=== PATIENT | male | born 1980 | race Caucasian/White ===

== ENCOUNTER 2021-09-14 10:43 | Outpatient (REF) | payer BC, SELFPAY ==
--- NOTE | ~2021-09-14 | XR_ITS ---
EXAMINATION: XR ELBOW, RIGHT CLINICAL INFORMATION: Right elbow pain. COMPARISON: None TECHNIQUE: AP, lateral, and oblique views of the right elbow. FINDINGS: The bones and soft tissues are normal. No fracture or joint effusion. Alignment is anatomic. Joint spaces are maintained. XR/XR elbow RT min 3V IMPRESSION: Unremarkable right elbow.
== END 2021-09-14 10:44 | disposition home or self-care (01) ==
LOC: HO.HMGCX 10:43
PROVIDERS: PCP Nurse Practitioner Family; Visit Provider Internal Medicine
DX: M77.8 Other enthesopathies, not elsewhere classified (principal)
CPT/HCPCS: 73080

== ENCOUNTER 2021-11-27 11:38 | Outpatient (REF) | payer BC, SELFPAY ==
[2021-11-27 14:15] LABS: MANUAL DIFF FLAG NO
[2021-11-27 14:16] LABS: Appearance Urine Clear; Color Urine Yellow; Glucose Urine UA Negative (Negative); Leukocyte Esterase Urine Negative (Negative); Nitrite Urine Negative (Negative); PH 7.5 (5.0-9.0); Specific Gravity - Urine <= 1.005 (1.005-1.025); Urine Blood Negative (Negative); Urine Ketones Negative (Negative); Urine Protein Negative (Neg-Trace)
[2021-11-27 14:26] LABS: Basophils Percent Auto 0.8 % (0-2); Eosinophils Absolute Auto 0.3 X10*3/uL (0.0-0.4); Eosinophils Percent Auto 6.9 % (0-4); Hematocrit 47.2 % (42.0-52.0); Hemoglobin 16.3 g/dl (14.0-18.0); Imm Gran Abs Auto 0.01 X10*3/uL (0.00-0.03); Imm Gran Pct Auto 0.2 % (0.0-0.4); Lymphocytes Absolute Auto 2.3 X10*3/uL (1.2-4.9); Lymphocytes Percent Auto 48.3 % (20-40); Mean Corpuscular HGB Conc 34.5 g/dl (31.0-36.0); Mean Corpuscular Hemoglobin 31.5 pg (27.0-33.0); Mean Corpuscular Volume 91.1 fL (80.0-98.0); Mean Platelet Volume 9.4 fL (9.4-12.4); Monocytes Absolute Auto 0.5 X10*3/uL (0.1-1.2); Monocytes Percent Auto 10.9 % (2-11); Neutrophils Absolute Auto 1.6 x10*3/uL (2.0-8.3); Neutrophils Percent Auto 32.9 % (45-73); Platelet Count 240 X10*3/uL (160-400); Red Blood Count 5.18 X10*6/uL (4.60-5.80); White Blood Count 4.8 X10*3/uL (4.8-10.8)
[2021-11-27 14:58] LABS: Alanine Aminotransferase 28 U/L (0-40); Alkaline Phosphatase 73 U/L (39-117); Anion Gap 17 (12-20); Aspartate Amino Transferase 21 U/L (5-37); Bilirubin Total 0.7 mg/dL (0.0-1.0); Blood Urea Nitrogen 15 mg/dL (9-16); Calcium 9.9 mg/dL (8.4-10.2); Carbon Dioxide 28 mmol/L (22-29); Chloride 99 mmol/L (96-108); Cholesterol 239 mg/dL; Estimated Glomerular Filt Rate > 60; Glucose Fasting 105 mg/dL (60-99); HDL Cholesterol 47 mg/dL; LDL Cholesterol Calculated 144 mg/dl; Potassium 4.4 mmol/L (3.3-5.1); Sodium 140 mmol/L (135-145); Total Protein 7.9 g/dL (6.5-8.0); Triglycerides 240 mg/dL
[2021-11-27 15:08] LABS: TSH reflex Free T4 0.86 uIU/mL (0.32-4.0)
== END 2021-11-27 11:39 | disposition home or self-care (01) ==
LOC: HO.HMGCLDS 11:38
PROVIDERS: PCP Nurse Practitioner Family; Visit Provider Nurse Practitioner Family
DX: Z00.00 Encounter for general adult medical examination without abnormal findings (principal)
CPT/HCPCS: 36415; 80053; 80061; 81003; 84443; 85025

== ENCOUNTER 2022-04-29 08:46 | Outpatient (REF) | payer BC, SELFPAY ==
[2022-04-29 12:43] LABS: Alanine Aminotransferase 37 U/L (0-40); Albumin Level 4.8 g/dL (3.5-5.0); Alkaline Phosphatase 68 U/L (39-117); Anion Gap 16 (12-20); Aspartate Amino Transferase 24 U/L (5-37); Bilirubin Total 0.9 mg/dL (0.0-1.0); Blood Urea Nitrogen 15 mg/dL (9-16); Calcium 9.9 mg/dL (8.4-10.2); Carbon Dioxide 26 mmol/L (22-29); Chloride 102 mmol/L (96-108); Cholesterol 159 mg/dL; Estimated Glomerular Filt Rate > 60; Glucose Fasting 95 mg/dL (60-99); HDL Cholesterol 42 mg/dL; LDL Cholesterol Calculated 74 mg/dl; Sodium 140 mmol/L (135-145); Total Protein 7.5 g/dL (6.5-8.0); Triglycerides 215 mg/dL
== END 2022-04-29 08:47 | disposition home or self-care (01) ==
LOC: HO.HMGCLDS 08:46
PROVIDERS: PCP Nurse Practitioner Family; Visit Provider Nurse Practitioner Family
DX: E78.5 Hyperlipidemia, unspecified (principal)
CPT/HCPCS: 36415; 80053; 80061

== ENCOUNTER → 2022-06-28 07:52 | Outpatient (BNVA) | payer BC, SELFPAY | PROVIDERS: PCP Nurse Practitioner Family; Visit Provider Nurse Practitioner Family ==

== ENCOUNTER 2022-09-16 13:40 | Outpatient (AMB) | payer BC, SELFPAY ==
--- NOTE | 2022-09-16 13:48 | MHC.PC.OV ---
Vital Signs 09/16/22 13:49 Height 5 ft 11 in Weight 243 lb 2 oz BMI 33.9 BP 150/102 H Blood Pressure Location Lt brachial Position Sitting Pulse 86 Pulse Source Pulse Oximeter Temp 98.6 F Temp Source Oral Pulse Oximetry (%) 98 Oxygen Delivery Method Room Air Intake Visit Reasons: BP/dizziness Intake Note: pt says he has been having sinus pain and pressure and dizziness for the past 2 weeks Allergies mold Allergy (Intermediate, Verified 09/16/22 13:53) triggers asthma Tobacco use date assessed: 09/16/22 Dental Screening Dental Screen Date: 09/16/22 Did you have a dental visit in the last 12 months?: Yes Did you have a dental problem in the last 6 months where you did not have access to dental care?: No Was dental information given to patient?: Patient has dentist HPI BP/dizziness HPI Details HTN: Blood pressure is elevated. Will restart losartan 25mg. Will also have pt monitor his blood pressure at home. Denies chest pain, shortness of breath, headache, dizziness, and blurred vision. Pt c/o sinus pressure. He has seen ENT in the past and had sinus surgery including polyp removal. Will refer back to ENT. Will also send fluticasone. PFSH Family History Sister Mental health disorder Father Brain cancer Mother Diabetes Social History Housing: House Alcohol intake: current Alcohol intake frequency: holidays/special occasions only Patient Tobacco Use Status: Never used Tobacco e-Cigarette/Vaping Use: Never Used Second Hand Smoke Exposure: No service: No Current occupational status: employed Current occupation: [employer] Current occupational exposures/hazards: No Cognitive needs: No Hearing needs: No Vision needs: No Questionnaire Thrive Questionnaire Date Thrive assessed: 07/04/22 TATIANNA-7 AMB Questionnaire TATIANNA-7 Date TATIANNA - 7 assessed: 07/04/22 Source: Developed by Drs. Donald Nunez, Adele Miller, Johnny Ribeiro and colleagues, with an educational jimi from [employer] Review of Systems Const Reports as per HPI Physical exam (Primary Care) Vital Signs: Last Vital Signs Temp 98.6 F 09/16/22 13:49 Pulse 86 09/16/22 13:49 BP 150/102 H 09/16/22 13:49 Pulse Ox 98 09/16/22 13:49 Oxygen Delivery Method Room Air 09/16/22 13:49 BMI result Body Mass Index 33.9 Tobacco/Smoking Status: Tobacco use Status Tobacco use date assessed 09/16/22 09/16/22 13:56 Patient Tobacco Use Status Never used Tobacco 09/16/22 13:56 e-Cigarette/Vaping Use Never Used 09/16/22 13:56 Thrive Assessment: Date of Thrive Assessment Date Thrive assessed 07/04/22 09/16/22 13:56 Const General: cooperative Orientation/consciousness: patient oriented x3 HENMT Other: minimal frontal and maxillary sinus pressure with palpation Ears: TM's normal bilaterally Resp Effort & Inspection: normal respiratory effort Auscultation: clear to auscultation bilaterally Cardio Rate: regular rate Rhythm: regular rhythm Heart sounds: S1 normal heart sound present and S2 normal heart sound present Neuro General: patient oriented x3 Psych Appearance: grossly normal Mental Status: mental status grossly normal Speech and movement: Normal speech and movement present Affect: normal affect Attitude: cooperative Thought process: Normal thought process present Thought content: Normal thought content present Insight: Good insight present (Psych) Judgement: Good judgement present (Psych) Assessment and Plan Assessment & Plan (1) Sinusitis, chronic: Code(s): J32.9 - Chronic sinusitis, unspecified Plan: Referred to ENT, fluticasone sent (2) HTN (hypertension): Code(s): I10 - Essential (primary) hypertension Plan The patient agreed to the use of a medical laboratory specialist for this encounter. Scribed for HUYEN Lewis by Tara Hare medical laboratory specialist, on 09/16/2022 at 14:10 EST. Orders: Referrals Ear/Nose/Throat Referral J32.9 - Chronic sinusitis, unspecified Medications: New fluticasone propionate 50 mcg/actuation (Allergy Relief (fluticasone)) administer into each nostril 2 sprays intranasal DAILY 16 grams 1RF losartan 25 mg PO DAILY 30 days 30 tabs 3RF Coding Level of Care Code Est Pt Level 3 (24976) Diagnoses Sinusitis, chronic J32.9 HTN (hypertension) I10
[2022-09-16 13:49] VITALS: BP 150/102; PULSE 86; TEMP 37; O2SAT 98; BMI 33.9
== END 2022-09-16 16:11 | disposition home or self-care (01) ==
PROVIDERS: PCP Nurse Practitioner Family; Visit Provider Nurse Practitioner Family
DX: J32.9 Chronic sinusitis, unspecified (principal); I10 Essential (primary) hypertension
CPT/HCPCS: 99213

== ENCOUNTER → 2022-09-17 14:55 | Outpatient (REF) | payer BC, SELFPAY | LOC: HO.SL 14:55 | PROVIDERS: PCP Nurse Practitioner Family; Visit Provider Nurse Practitioner Family | DX: G47.00 Insomnia, unspecified (principal); R40.0 Somnolence; R06.83 Snoring | CPT/HCPCS: 95806 ==

== ENCOUNTER → 2022-09-17 15:03 | Outpatient (BNV) | payer BC, SELFPAY | PROVIDERS: PCP Nurse Practitioner Family; Visit Provider Internal Medicine | DX: R06.83 Snoring (principal) | CPT/HCPCS: 95806 ==

== ENCOUNTER 2022-11-18 13:42 | Outpatient (REF) | payer BC, SELFPAY | END 2022-11-18 13:43 | disposition home or self-care (01) | LOC: HO.HMGCLDS 13:42 | PROVIDERS: PCP Nurse Practitioner Family; Visit Provider Nurse Practitioner Family | DX: Z00.00 Encounter for general adult medical examination without abnormal findings (principal); Z13.220 Encounter for screening for lipoid disorders; Z13.29 Encounter for screening for other suspected endocrine disorder; Z13.0 Encounter for screening for diseases of the blood and blood-forming organs and certain disorders involving the immune mechanism | CPT/HCPCS: 36415; 80053; 80061; 81003; 84443; 85025 ==

== ENCOUNTER 2022-11-21 13:15 | Outpatient (AMB) | payer BC, SELFPAY ==
[2022-11-21 13:28] VITALS: BP 152/90; PULSE 91; O2SAT 98; BMI 34.2
--- NOTE | 2022-11-21 13:28 | MHC.PC.OV ---
Vital Signs 11/21/22 13:28 Height 5 ft 11 in Weight 245 lb 6 oz BMI 34.2 BP 152/90 H Blood Pressure Location Lt brachial Position Sitting Pulse 91 Pulse Source Pulse Oximeter Pulse Oximetry (%) 98 Oxygen Delivery Method Room Air Intake Visit Reasons: Annual PE (pt states Pe is calender year) Allergies mold Allergy (Intermediate, Verified 11/21/22 13:32) triggers asthma Medication List - Last Reconciled 11/21/22 by ERMA Sam-IRMA albuterol sulfate 90 mcg/actuation 2 puffs inhalation Q6H PRN amitriptyline 25 mg PO BEDTIME clonazepam 0.5 mg PO DAILY PRN fluticasone propion-salmeterol 250-50 mcg/dose (Wixela Inhub) 1 ea inhalation BID fluticasone propionate 50 mcg/actuation (Allergy Relief (fluticasone)) 2 sprays intranasal DAILY hydrochlorothiazide 12.5 mg PO DAILY ibuprofen 400 mg PO Q8H rosuvastatin 5 mg PO DAILY temazepam 30 mg PO BEDTIME PRN 30 days Tobacco use date assessed: 11/21/22 Dental Screening Dental Screen Date: 11/21/22 Did you have a dental visit in the last 12 months?: Yes Did you have a dental problem in the last 6 months where you did not have access to dental care?: No Was dental information given to patient?: Patient has dentist HPI Annual PE (pt states Pe is calender year) HPI Details Pt is here for a PE. Labs were already performed. HTN: Blood pressure is elevated today. Pt reports that his BP is elevated at home as well (mostly in 130s/80s, but sometimes in 140s/90s). Will start hydrochlorothiazide 12.5mg. Denies chest pain, shortness of breath, headache, dizziness, and blurred vision. He will cont to monitor his BP at home PFSH Family History Sister Mental health disorder Father Brain cancer Mother Diabetes Social History Housing: House Alcohol intake: current Alcohol intake frequency: holidays/special occasions only Patient Tobacco Use Status: Never used Tobacco e-Cigarette/Vaping Use: Never Used Second Hand Smoke Exposure: No service: No Current occupational status: employed Current occupation: [employer] Current occupational exposures/hazards: No Cognitive needs: No Hearing needs: No Vision needs: No Questionnaire Thrive Questionnaire Date Thrive assessed: 07/04/22 TATIANNA-7 AMB Questionnaire TATIANNA-7 Date TATIANNA - 7 assessed: 07/04/22 Source: Developed by Drs. Donald Nunez, Adele Miller, Johnny Ribeiro and colleagues, with an educational jimi from [employer]. Review of Systems Const Denies chills and Denies fever(s) Eyes Denies blurry vision ENT Denies vertigo, Denies dizziness and Denies sore throat Card Denies chest pain at rest, Denies chest pain with activity, Denies diaphoresis, Denies dyspnea and Denies dyspnea on exertion Resp Denies cough, Denies dyspnea, Denies dyspnea on exertion and Denies wheezing GI Denies abdominal pain, Denies melena, Denies hematochezia, Denies constipation, Denies diarrhea and Denies loose stools Denies hematuria Musc Denies numbness and Denies tingling Skin/Breast Denies lesions Neuro Denies vertigo, Denies dizziness, Denies numbness and Denies tingling Psych Denies anxiety, Denies depression, Denies homicidal ideation, Denies suicidal ideation and Denies other (substance abuse) Aller/Immun Denies wheezing Physical exam (Primary Care) Vital Signs: Last Vital Signs Pulse 91 11/21/22 13:28 BP 152/90 H 11/21/22 13:28 Pulse Ox 98 11/21/22 13:28 Oxygen Delivery Method Room Air 11/21/22 13:28 BMI result Body Mass Index 34.2 Tobacco/Smoking Status: Tobacco use Status Tobacco use date assessed 11/21/22 11/21/22 13:35 Patient Tobacco Use Status Never used Tobacco 11/21/22 13:35 e-Cigarette/Vaping Use Never Used 11/21/22 13:35 Thrive Assessment: Date of Thrive Assessment Date Thrive assessed 07/04/22 11/21/22 13:35 Const General: cooperative Nutritional Appearance: well nourished Orientation/consciousness: patient oriented x3 HENMT Head: Yes normal to inspection, Yes normocephalic and Yes atraumatic Ears: TM's normal bilaterally Eyes General: appearance normal, both eyes and all related structures Alignment and Position: alignment normal and position normal Neck Neck: Yes normal visual inspection and Yes no lymphadenopathy Thyroid: Thyroid normal Resp Effort & Inspection: normal respiratory effort Auscultation: clear to auscultation bilaterally Cardio Rate: regular rate Rhythm: regular rhythm Heart sounds: S1 normal heart sound present, S2 normal heart sound present and no murmurs GI Palpation (GI): Soft to palpation and nontender Auscultation: normal bowel sounds Male General Exam: Yes normal external exam Penis: normal penis Scrotum: scrotum normal, testes descended bilaterally and no inguinal hernias Testes: no testicular mass Skin Rashes: no rashes Neuro General: patient oriented x3, moves all extremities, no focal motor deficits and deep tendon reflexes 2+ bilaterally Romberg Test: Negative Psych Appearance: grossly normal Mental Status: mental status grossly normal Speech and movement: Normal speech and movement present Affect: normal affect Attitude: cooperative Thought process: Normal thought process present Thought content: Normal thought content present Insight: Good insight present (Psych) Judgement: Good judgement present (Psych) Assessment and Plan Assessment & Plan (1) HTN (hypertension): Code(s): I10 - Essential (primary) hypertension Plan: start hctz (2) Physical exam: Code(s): Z00.00 - Encounter for general adult medical examination without abnormal findings Plan The patient agreed to the use of a electromedical service engineer for this encounter. Scribed for HUYEN Lewis by Tara Hare electromedical service engineer, on 11/21/2022 at 13:40 EST Medications: New hydrochlorothiazide 12.5 mg PO DAILY 90 tabs 0RF Coding Level of Care Code Est Pt Prev Care 40-64y(74715) Diagnoses HTN (hypertension) I10 Physical exam Z00.00
== END 2022-11-21 14:03 | disposition home or self-care (01) ==
PROVIDERS: Visit Provider Nurse Practitioner Family
DX: I10 Essential (primary) hypertension (principal); Z00.00 Encounter for general adult medical examination without abnormal findings
CPT/HCPCS: 99396

== ENCOUNTER 2023-02-28 14:16 | Outpatient (REF) | payer BC, SELFPAY ==
[2023-02-28 16:37] LABS: Alanine Aminotransferase 44 U/L (0-40); Albumin Level 4.7 g/dL (3.5-5.0); Alkaline Phosphatase 72 U/L (39-117); Anion Gap 14 (12-20); Aspartate Amino Transferase 26 U/L (5-37); Bilirubin Total 0.6 mg/dL (0.0-1.0); Blood Urea Nitrogen 13 mg/dL (9-16); Calcium 10.2 mg/dL (8.4-10.2); Carbon Dioxide 31 mmol/L (22-29); Chloride 99 mmol/L (96-108); Estimated Glomerular Filt Rate > 60; Glucose Random 190 mg/dL (60-115); Potassium 3.7 mmol/L (3.3-5.1); Sodium 140 mmol/L (135-145)
== END 2023-02-28 14:17 | disposition home or self-care (01) ==
LOC: HO.HMGCLDS 14:16
PROVIDERS: PCP Nurse Practitioner Family; Visit Provider Nurse Practitioner Family
DX: I10 Essential (primary) hypertension (principal)
CPT/HCPCS: 36415; 80053

== ENCOUNTER 2023-03-06 11:27 | Outpatient (REF) | payer BC, SELFPAY ==
[2023-03-06 14:12] LABS: Estimated Average Glucose 97 mg/dL
[2023-03-06 14:18] LABS: Alanine Aminotransferase 58 U/L (0-40); Albumin Level 4.8 g/dL (3.5-5.0); Alkaline Phosphatase 69 U/L (39-117); Anion Gap 15 (12-20); Aspartate Amino Transferase 37 U/L (5-37); Bilirubin Total 0.8 mg/dL (0.0-1.0); Blood Urea Nitrogen 12 mg/dL (9-16); Calcium 10.2 mg/dL (8.4-10.2); Carbon Dioxide 30 mmol/L (22-29); Chloride 99 mmol/L (96-108); Estimated Glomerular Filt Rate > 60; Glucose Fasting 93 mg/dL (60-99); Potassium 3.9 mmol/L (3.3-5.1); Sodium 140 mmol/L (135-145); Total Protein 8.2 g/dL (6.5-8.0)
[2023-03-07 07:21] LABS: HBS Num1 11.92 mIU/mL (0-7.99); HBc Num1 0.05 S/CO (0.00-0.79); HBsAGNum1 0.36 S/CO (0.00-0.99); Hepatitis A Antibody IgM 0.14 Index (0-0.79); Hepatitis B Core Antibody Nonreactive (Nonreactive); Hepatitis B Surface Antigen Negative (Negative); ~HepC Num1 0.11 S/CO (0.00-0.79); ~Hepatitis A Antibody IgM Nonreactive (Nonreactive); ~Hepatitis C Antibody Nonreactive (Nonreactive)
[2023-03-07 08:26] LABS: HBS Num3 11.82 mIU/mL (0-7.99)
[2023-03-07 08:27] LABS: ~Hepatitis B Surface Antibody GRAYZONE (Nonreactive)
== END 2023-03-06 11:28 | disposition home or self-care (01) ==
LOC: HO.HMGCLDS 11:27
PROVIDERS: PCP Nurse Practitioner Family; Visit Provider Nurse Practitioner Family
DX: R73.9 Hyperglycemia, unspecified (principal); R74.8 Abnormal levels of other serum enzymes
CPT/HCPCS: 36415; 80053; 83036; 86704; 86706; 86709; 86803; 87340

== ENCOUNTER 2023-03-12 08:50 | Outpatient (REF) | payer BC, SELFPAY ==
--- NOTE | ~2023-03-12 | US_ITS ---
EXAMINATION: US ABDOMEN COMPLETE CLINICAL INFORMATION: Elevated LFTs. COMPARISON: None available. TECHNIQUE: Real-time imaging of the abdominal viscera. FINDINGS: PANCREAS: Normal. ABDOMINAL AORTA: The proximal, mid, and distal segments are normal in caliber. INFERIOR VENA CAVA: Visualized portions are normal. LIVER: Liver is enlarged measuring 18.1 cm in span. The liver contour is normal. Mildly increased hepatic echogenicity which can be seen in the setting of hepatic steatosis or underlying liver disease. No focal hepatic lesion. There is no intrahepatic biliary duct dilatation seen. GALLBLADDER: Normal. The gallbladder is physiologically distended without evidence of stones, sludge, polyps, wall thickening or pericholecystic fluid. COMMON BILE DUCT: Normal in caliber measuring 0.5 cm in diameter. RIGHT KIDNEY: The kidney appears congenitally malrotated. No hydronephrosis. No renal calculi or focal parenchymal lesions. The kidney measures 13.1 cm in maximum dimension. LEFT KIDNEY: Normal. No hydronephrosis. No renal calculi or focal parenchymal lesions. The kidney measures 13 cm in maximum dimension. SPLEEN: Normal. The spleen measures 11.6 cm in maximum dimension. FREE FLUID: None. US/US abdomen complete IMPRESSION: 1. Hepatomegaly. Mildly increased hepatic echogenicity which can be seen in the setting of hepatic steatosis or underlying liver disease. 2. Right kidney appears congenitally malrotated.
== END 2023-03-12 08:51 | disposition home or self-care (01) ==
LOC: HO.HMGCX 08:50
PROVIDERS: PCP Nurse Practitioner Family; Visit Provider Nurse Practitioner Family
DX: R74.8 Abnormal levels of other serum enzymes (principal)
CPT/HCPCS: 76700

== ENCOUNTER 2023-10-10 09:50 | Outpatient (REF) | payer BC, SELFPAY ==
[2023-10-10 13:28] LABS: MANUAL DIFF FLAG NO
[2023-10-10 13:35] LABS: Basophils Absolute Auto 0.1 X10*3/uL (0.0-0.2); Basophils Percent Auto 0.7 % (0-2); Eosinophils Absolute Auto 0.4 X10*3/uL (0.0-0.4); Hematocrit 45.5 % (42.0-52.0); Hemoglobin 16.3 g/dl (14.0-18.0); Imm Gran Abs Auto 0.02 X10*3/uL (0.00-0.03); Imm Gran Pct Auto 0.3 % (0.0-0.4); Lymphocytes Absolute Auto 2.7 X10*3/uL (1.2-4.9); Lymphocytes Percent Auto 40.1 % (20-40); Mean Corpuscular HGB Conc 35.8 g/dl (31.0-36.0); Mean Corpuscular Hemoglobin 31.9 pg (27.0-33.0); Mean Platelet Volume 9.7 fL (9.4-12.4); Monocytes Absolute Auto 0.6 X10*3/uL (0.1-1.2); Monocytes Percent Auto 9.4 % (2-11); Neutrophils Absolute Auto 2.9 x10*3/uL (2.0-8.3); Neutrophils Percent Auto 43.5 % (45-73); Platelet Count 255 X10*3/uL (160-400); Red Blood Count 5.11 X10*6/uL (4.60-5.80); Red Cell Distribution Width 12.1 % (11.0-16.0); White Blood Count 6.7 X10*3/uL (4.8-10.8)
[2023-10-10 13:37] LABS: Appearance Urine Clear; Color Urine Yellow; Glucose Urine UA Negative (Negative); Leukocyte Esterase Urine Negative (Negative); Nitrite Urine Negative (Negative); PH 7.5 (5.0-9.0); Specific Gravity - Urine <= 1.005 (1.005-1.025); Urine Blood Negative (Negative); Urine Ketones Negative (Negative); Urine Protein Negative (Neg-Trace)
[2023-10-10 14:32] LABS: Alanine Aminotransferase 28 U/L (0-40); Albumin Level 4.8 g/dL (3.5-5.0); Alkaline Phosphatase 87 U/L (39-117); Anion Gap 11 (12-20); Aspartate Amino Transferase 21 U/L (5-37); Bilirubin Total 0.7 mg/dL (0.0-1.0); Blood Urea Nitrogen 11 mg/dL (9-16); Calcium 10.4 mg/dL (8.4-10.2); Carbon Dioxide 30 mmol/L (22-29); Chloride 102 mmol/L (96-108); Cholesterol 132 mg/dL (<200); Estimated Glomerular Filt Rate > 60; Glucose Fasting 93 mg/dL (60-99); HDL Cholesterol 41 mg/dL (>40); LDL Cholesterol Calculated 51 mg/dL (<100); Potassium 3.7 mmol/L (3.3-5.1); Sodium 139 mmol/L (135-145); Total Protein 7.9 g/dL (6.5-8.0); Triglycerides 200 mg/dL (<150)
[2023-10-10 14:39] LABS: TSH reflex Free T4 1.24 uIU/mL (0.32-4.0)
== END 2023-10-10 09:51 | disposition home or self-care (01) ==
LOC: HO.HMGCLDS 09:50
PROVIDERS: PCP Nurse Practitioner Family; Visit Provider Nurse Practitioner Family
DX: Z00.00 Encounter for general adult medical examination without abnormal findings (principal); Z13.6 Encounter for screening for cardiovascular disorders
CPT/HCPCS: 36415; 80053; 80061; 81003; 84443; 85025

== ENCOUNTER 2023-10-14 13:44 | Outpatient (AMB) | payer BC, SELFPAY ==
--- NOTE | 2023-10-14 13:46 | MHC.PC.OV ---
Vital Signs 10/14/23 13:47 Height 5 ft 11 in Weight 241 lb BMI 33.6 BP 122/80 Blood Pressure Location Rt brachial Position Sitting Pulse 96 Pulse Source Pulse Oximeter Pulse Oximetry (%) 98 Intake Visit Reasons: Annual PE Intake Note: pt is here for annual exam Molecular Spectroscopist Required: No Accompanied by: Self / Same As Patient Allergies mold Allergy (Intermediate, Verified 10/14/23 13:47) triggers asthma Tobacco use date assessed: 10/14/23 Dental Screening Dental Screen Date: 10/14/23 Did you have a dental visit in the last 12 months?: Yes Did you have a dental problem in the last 6 months where you did not have access to dental care?: No Was dental information given to patient?: Patient has dentist HPI Annual PE HPI Details Pt is here for a PE. Labs were already performed. [facility] Medical History (Updated 03/13/23 @ 07:06 by HUYEN Sam) Fatty liver Kidney, malrotation Surgical History No pertinent past surgical history Family History Sister Mental health disorder Father Brain cancer Mother Diabetes Social History Housing: House Alcohol intake: current Alcohol intake frequency: holidays/special occasions only Patient Tobacco Use Status: Never used Tobacco e-Cigarette/Vaping Use: Never Used Second Hand Smoke Exposure: No service: No Current occupational status: employed Current occupation: [employer] Current occupational exposures/hazards: No Cognitive needs: No Hearing needs: No Vision needs: No Questionnaire PHQ-9 Over the last 2 weeks, how often have you been bothered by any of the following problems? 1. Little interest or pleasure in doing things: not at all 2. Feeling down, depressed, or hopeless: several days 3. Trouble falling or staying asleep, or sleeping too much: several days 4. Feeling tired or having little energy: several days 5. Poor appetite or overeating: not at all 6. Feeling bad about yourself - or that you are a failure or have let yourself or your family down: not at all 7. Trouble concentrating on things, such as reading the newspaper or watching television: not at all 8. Moving or speaking so slowly that other people could have noticed. Or the opposite - being so fidgety or restless that you have been moving around a lot more than usual: not at all 9. Thoughts that you would be better off or of hurting yourself in some way: not at all Total score: 3 Depression Screening Interpretation: Negative Depression Screening Done: Yes 45103 - PHQ-9 Billing: Yes Source: Developed by Drs. Donald Nunez, Adele Miller, Johnny Ribeiro and colleagues, with an educational jimi from [employer]. Thrive Questionnaire Date Thrive assessed: 10/14/23 I am a: Patient What is your living situation today?: I have a steady place to live Within the past 12 months, did the food you bought not last and you didn't have the money to get more?: Never true Within the past 12 months, did you worry whether your food would run out before you got money to buy more?: Never true Do you have trouble paying for medicines?: No Do you have trouble getting transportation to medical appointments?: No Do you have trouble paying your heating and electricity bill?: No Do you have trouble taking care of your child, family member or friend?: No Do you have trouble with day-to-day activities such as bathing, preparing meals, shopping, managing finances, etc.?: No Are you currently unemployed and looking for a job?: No Are you interested in more education?: No Please select the resources that you would like help with: None Currently or been in a relationship where the following occur: No concerns reported THRIVE Score: 0 AUDIT C Alcohol Use Questionnaire (AUDIT-C) 1. How often do you have a drink containing alcohol?: Monthly or less 2. How many drinks containing alcohol do you have on a typical day when you are drinking?: 1 or 2 3. How often do you have six or more drinks on one occasion?: Never Total Score: 1 Score Reviewed/Action Taken: Yes TATIANNA-7 AMB Questionnaire TATIANNA-7 Date TATIANNA - 7 assessed: 10/14/23 Feeling nervous, anxious, or on edge: 1 = Several days Not being able to stop or control worryin = Several days Worrying too much about different things: 0 = Not at all Trouble relaxin = Several days Being so restless that it is hard to sit still: 1 = Several days Becoming easily annoyed or irritable: 0 = Not at all Feeling afraid as if something awful might happen: 0 = Not at all Total TATIANNA-7 score (0-4 normal; 5-9 mild; 10-14 moderate; 15-21 severe): 4 Source: Developed by Drs. Donald Nunez, Adele Miller, Johnny Ribeiro and colleagues, with an educational jimi from [employer]. TATIANNA-7 Assessment Billing TATIANNA-7 Assessment Tool: TATIANNA-7 Assessment 05171 Review of Systems Const Denies chills and Denies fever(s) Eyes Denies blurry vision ENT Denies vertigo, Denies dizziness and Denies sore throat Card Denies chest pain at rest, Denies chest pain with activity, Denies diaphoresis, Denies dyspnea and Denies dyspnea on exertion Resp Denies cough, Denies dyspnea, Denies dyspnea on exertion and Denies wheezing GI Denies abdominal pain, Denies melena, Denies hematochezia, Denies constipation, Denies diarrhea and Denies loose stools Denies hematuria Musc Denies numbness and Denies tingling Skin/Breast Denies lesions Neuro Denies vertigo, Denies dizziness, Denies numbness and Denies tingling Psych Denies anxiety, Denies depression, Denies homicidal ideation, Denies suicidal ideation and Denies other (substance abuse) Aller/Immun Denies wheezing Physical exam (Primary Care) Vital Signs: Last Vital Signs Pulse 96 10/14/23 13:47 BP 122/80 10/14/23 13:47 Pulse Ox 98 10/14/23 13:47 BMI result Body Mass Index 33.6 Tobacco/Smoking Status: Tobacco use Status Tobacco use date assessed 10/14/23 10/14/23 13:48 Patient Tobacco Use Status Never used Tobacco 10/14/23 13:48 e-Cigarette/Vaping Use Never Used 10/14/23 13:48 PHQ-9: PHQ-9 Score PHQ-9: Total score 3 10/14/23 13:58 Depression Screening Interpretation: Negative Thrive Assessment: Date of Thrive Assessment Date Thrive assessed 10/14/23 10/14/23 13:48 Currently or been in a relationship where the following occur: No concerns reported Const General: cooperative Nutritional Appearance: well nourished Orientation/consciousness: patient oriented x3 HENMT Head: Yes normal to inspection, Yes normocephalic and Yes atraumatic Ears: TM's normal bilaterally Eyes General: appearance normal, both eyes and all related structures Alignment and Position: alignment normal and position normal Neck Neck: Yes normal visual inspection, Yes no lymphadenopathy and Yes supple Resp Effort & Inspection: normal respiratory effort Auscultation: clear to auscultation bilaterally Cardio Rate: regular rate Rhythm: regular rhythm Heart sounds: S1 normal heart sound present, S2 normal heart sound present and no murmurs GI Palpation (GI): Soft to palpation and nontender Auscultation: normal bowel sounds Male General Exam: Yes normal external exam Penis: normal penis Scrotum: scrotum normal, testes descended bilaterally and no inguinal hernias Testes: no testicular mass Skin Rashes: no rashes Neuro General: patient oriented x3, moves all extremities, no focal motor deficits and deep tendon reflexes 2+ bilaterally Romberg Test: Negative Psych Appearance: grossly normal Mental Status: mental status grossly normal Speech and movement: Normal speech and movement present Affect: normal affect Attitude: cooperative Thought process: Normal thought process present Thought content: Normal thought content present Insight: Good insight present (Psych) Judgement: Good judgement present (Psych) Assessment and Plan Assessment & Plan (1) Physical exam: Code(s): Z00.00 - Encounter for general adult medical examination without abnormal findings Plan The patient agreed to the use of a medical records coder for this encounter. Scribed for HUYEN Lewis by Tara Hare medical records coder, on 10/14/2023 at 14:00 EST. Coding Level of Care Code Est Pt Prev Care 40-64y(85251) Diagnoses Physical exam Z00.00 Additional Codes TATIANNA-7 Assessment Billing - TATIANNA-7 Assessment Tool: TATIANNA-7 Assessment 03078 ([id number])
[2023-10-14 13:47] VITALS: BP 122/80; PULSE 96; O2SAT 98; BMI 33.6
== END 2023-10-14 14:11 | disposition home or self-care (01) ==
PROVIDERS: PCP Nurse Practitioner Family; Visit Provider Nurse Practitioner Family
DX: Z00.00 Encounter for general adult medical examination without abnormal findings (principal)
CPT/HCPCS: 99396

== ENCOUNTER → 2023-11-21 14:45 | Outpatient (BNVA) | payer BC, SELFPAY | PROVIDERS: Visit Provider Nurse Practitioner Family | DX: R03.0 Elevated blood-pressure reading, without diagnosis of hypertension (principal); G47.00 Insomnia, unspecified; R40.0 Somnolence ==

== ENCOUNTER 2024-01-04 13:28 | Outpatient (REF) | payer BC, SELFPAY ==
--- NOTE | ~2024-01-04 | MR_ITS ---
EXAMINATION: MR BRAIN WITHOUT AND WITH CONTRAST CLINICAL INFORMATION: Headache. COMPARISON: None available. TECHNIQUE: MRI of the brain was obtained using routine sequences without and following the administration of 10 mL of Gadavist intravenous contrast. FINDINGS: No focal restricted diffusion is demonstrated to suggest acute or subacute cerebral ischemia. No evidence of acute or chronic hemorrhagic products on heme-sensitive imaging. Few nonspecific scattered foci of T2 FLAIR hyperintensity within the bifrontal lobes. No additional parenchymal signal abnormalities. The ventricles are normal in morphology and size. No abnormal mass effect. No midline shift. Normal appearance of the pituitary gland. The suprasellar cistern remains widely patent. Normal positioning of the cerebellar tonsils. Normal arterial and venous vascular flow voids are present. No abnormal contrast enhancement. Normal, homogeneous marrow signal. Moderate mucosal thickening of the paranasal sinuses. No signal abnormalities within the mastoids. MR/MR head/brain wo/w con IMPRESSION: 1. No acute intracranial abnormalities. No abnormal intracranial enhancement. 2. Minimal nonspecific white matter changes. 3. Moderate sinonasal mucosal disease. Electronically signed by: Santhosh Palacios DO 01/21/2024 08:15 AM JERRY
[2024-01-04] MEDS: gadobutroL 10 ML VIAL IVPUSH (14:20)
== END 2024-01-04 13:29 | disposition home or self-care (01) ==
LOC: HO.MRI 13:28
PROVIDERS: PCP Nurse Practitioner Family; Visit Provider Nurse Practitioner Family
DX: R51.9 Headache, unspecified (principal)
CPT/HCPCS: 70553; A9585

== ENCOUNTER 2024-01-15 11:50 | Outpatient (REF) | payer BC, SELFPAY ==
[2024-01-15 13:22] LABS: Rheumatoid Factor < 13.0 IU/mL (<15.0)
[2024-01-15 13:32] LABS: TSH reflex Free T4 1.59 uIU/mL (0.32-4.0)
[2024-01-15 13:45] LABS: Folate 14.1 ng/mL (> or = 4.0); Vitamin B12 517 pg/mL (200-900)
[2024-01-15 14:03] LABS: Erythrocyte Sedimentation Rate 10 MM/HR (0-15)
[2024-01-17 01:13] LABS: CRP High Sensitivity 12.1 mg/L
[2024-01-17 01:54] LABS: Lyme Abs Screen <0.90 index
[2024-01-20 13:33] LABS: Vitamin D 25-OH, D2 <4 ng/mL; Vitamin D 25-OH, D3 25 ng/mL; Vitamin D 25-OH, Total 25 ng/mL (30-100)
[2024-01-20 14:08] LABS: Anti Nuclear Antibody Screen NEGATIVE (NEGATIVE)
== END 2024-01-15 11:51 | disposition home or self-care (01) ==
LOC: HO.HMGCLDS 11:50
PROVIDERS: PCP Nurse Practitioner Family; Visit Provider Nurse Practitioner Family
DX: R51.9 Headache, unspecified (principal); F41.9 Anxiety disorder, unspecified; R74.8 Abnormal levels of other serum enzymes; E78.5 Hyperlipidemia, unspecified
CPT/HCPCS: 36415; 82306; 82607; 82746; 84443; 85652; 86038; 86141; 86431; 86617; 86618

== ENCOUNTER 2024-04-16 14:00 | Outpatient (REF) | payer BC, SELFPAY ==
--- OUTSIDE RECORDS SUMMARY | 2024-04-16 15:41 | XMS_ITS | Clinical Summary ---
Author Organization [facility] Address [address] [place] [address] Care Team Providers Care Nurse'S Assistant Name Role Phone Provider, Unknown Primary Care Provider [id number] Allergies No known active allergies Medications Medication Sig Dispensed Refills Start Date End Date Status levalbuterol (XOPENEX) 0.63 MG/3ML nebulizer solution Take 1 vial by nebulization every 4 (four) hours as needed for wheezing. Active fluticasone-salmete rol (ADVAIR) 250-50 mcg/inh diskus inhaler Inhale 1 puff 2 (two) times a day. Active omega-3 fatty acids (FISH OIL) 1000 MG Cap capsule Take by mouth. Active ergocalciferol (VITAMIN D2,DRISDOL) 18395 units Cap Take 50,000 Units by mouth once a week. Active Social History Tobacco Use Types Packs/Day Years Used Date Smoking Tobacco: Never Alcohol Use Standard Drinks/Week Comments No 0 (1 standard drink = 0.6 oz pur e alcohol) Sex and Gender Information Value Date Recorded Sex Assigned at Not on file Gender Identity Not on file Sexual Orientation Not on file Last Filed Vital Signs Vital Sign Reading Time Taken Comments Blood Pressure 134/65 11/09/2015 12:41 AM EDT Pulse 71 11/09/2015 12:41 AM EDT Temperature 36.4 ??C (97.6 ??F) 11/09/2015 12:41 AM E DT Respiratory Rate 18 11/09/2015 12:41 AM EDT Oxygen Saturation 99% 11/09/2015 12:41 AM EDT Inhaled Oxygen Concentration - - Weight - - Height - - Body Mass Index - - Plan of Treatment Health Maintenance Due Date Last Done Comments Hepatitis C Virus Screening 1981 HIV Screening 1994 DTaP/Tdap/Td Vaccines (1 - Tdap) 2000 Hepatitis B Vaccines (1 of 3 - 19+ 3-dose series) 2000 Influenza Vaccine 09/11/2023 COVID-19 Vaccine (1 - 2023-2 5 season) 2023 HPV Vaccines Aged Out No longer eligi ble based on patient's age to complete this topic Pneumococcal Vaccine: Pediat marquita (0-5 Years) and At-Risk Patients (6 to 49 Years) Aged Out No longer eligible b ased on patient's age to complete this topic Care Teams Nurse'S Assistant Relationship Specialty Start Date End Date Provider, Unknown 1 DO NOT USE THIS RECORD PCP - General 11/08/15
--- OUTSIDE RECORDS SUMMARY | 2024-04-16 15:41 | XMS_ITS | Clinical Summary ---
Author Organization [facility] Address [address] [place] [address] Care Team Providers Care Office Technologist Name Role Phone Bessy Lawton Primary Care Provider Unavailabl e Medications Fluticasone-Salmet nereyda (Advair Diskus) 250-50 MCG/ACT diskus inhaler 180 0 09/01/2014 Active Levalbuterol Tartrate (Xopenex HFA) 45 MCG/ACT inhaler 45 0 09/01/2014 Active Amitriptyline HCl (ELAVIL) 25 MG tablet 30 0 12/22/2014 Active Active Problems Problem Noted Date Diagnosed Date Migraines 01/23/2015 Asthma 01/23/2015 Family History Medical History Relation Name Comments Hypertension Father hypertension : Mother, Father Lipid/Cholesterol Abnormality Father hyperlipidemia : Mot her, Father Heart Disorder Maternal grandfather acute myocardial infarction : Paternal Grandmother, Maternal Grandfather, Paternal Grandfather Cancer - Ovarian Maternal great-grandmother ovarian cancer : Maternal Great Grandmother Diabetes Mother diabetes mellit us : Mother Hypertension Mother hypertension : Mother, Father Lipid/Cholesterol Abnormality Mother hyperlipidemia : Mot her, Father Heart Disorder Paternal grandfather acute myocardial infarction : Paternal Grandmother, Maternal Grandfather, Paternal Grandfather Heart Disorder Paternal grandmother acute myocardial infarction : Paternal Grandmother, Maternal Grandfather, Paternal Grandfather Psych/Mental Health Sister FHx: bip olar disorder : Sister Relation Name Status Comments Father Maternal grandfather Maternal great-grandmother Mother Paternal grandfather Paternal grandmother Sister Social History Tobacco Use Types Packs/Day Years Used Date Smoking Tobacco: Never Assessed Comments:Smoking Status:Sandeep rajan smoker Sex and Gender Information Value Date Recorded Sex Assigned at Not on file Legal Sex Male 6:28 PM EDT Gender Identity Not on file Sexual Orientation Not on file Last Filed Vital Signs Vital Sign Reading Time Taken Comments Blood Pressure 150/80 01/23/2015 7:09 PM EST Pulse 98 01/23/2015 7:09 PM EST Temperature 36.7 ??C (98 ??F) 01/23/2015 7:09 PM EST Respiratory Rate - - Oxygen Saturation 97% 01/23/2015 7:09 PM EST Inhaled Oxygen Concentration - - Weight 122 kg (269 lb 0.1 oz) 01/23/2015 7:09 PM EST Height 180.3 cm (5' 11 ) 01/23/2015 7:09 PM EST Body Mass Index 37.52 01/23/2015 7:09 PM EST Plan of Treatment Health Maintenance Due Date Last Done Comments Hepatitis C Screening 1981 DTaP/Tdap/Td (1 - Tdap) 10/12/1999 Hep B (1 of 3 - 19+ 3-dose series) 2000 COVID-19 Vaccine (2023-2 5 season) 2023 Influenza (#1) 2023 Zoster (Shingrix) (1 of 2) 10/12/2031 HPV Vaccine Aged Out No longer eligi ble based on patient's age to complete this topic Hep A Aged Out No longer eligi ble based on patient's age to complete this topic Hib Aged Out No longer eligi ble based on patient's age to complete this topic Meningococcal ACWY Aged Out No longer eligible based on patient's age to complete this topic Pneumococcal Aged Out No longer eligi ble based on patient's age to complete this topic Care Teams Office Technologist Relationship Specialty Start Date End Date Bessy Lawton PCP - General 09/16/22
[2024-04-22 23:24] LABS: Vitamin D 25-OH, D2 <4 ng/mL; Vitamin D 25-OH, D3 42 ng/mL; Vitamin D 25-OH, Total 42 ng/mL (30-100)
== END 2024-04-16 14:01 | disposition home or self-care (01) ==
LOC: HO.HMGCLDS 14:00
PROVIDERS: PCP Nurse Practitioner Family; Visit Provider Nurse Practitioner Family
DX: E55.9 Vitamin D deficiency, unspecified (principal)
CPT/HCPCS: 36415; 82306

== ENCOUNTER 2024-06-10 15:22 | Outpatient (AMB) | payer BC, SELFPAY ==
[2024-06-10 15:37] VITALS: BP 130/78; PULSE 109; O2SAT 96; BMI 34.6
--- NOTE | 2024-06-10 15:37 | MHC.OFFVIS ---
Vital Signs 06/10/24 15:37 Height 5 ft 11 in Weight 248 lb BMI 34.6 BP 130/78 Blood Pressure Location Lt brachial Pulse 109 H Pulse Source Pulse Oximeter Pulse Oximetry (%) 96 Oxygen Delivery Method Room Air Intake Visit Reasons: 6 mo follow up Intake Note: Patient presents month follow up for GREER/Insomnia. Accompanied by: Self / Same As Patient Allergies mold Allergy (Intermediate, Verified 06/10/24 15:40) triggers asthma Medication List - Last Reconciled 06/10/24 by ERMA Jones albuterol sulfate 90 mcg/actuation 2 puffs inhalation Q6H PRN amitriptyline 25 mg PO BEDTIME cholecalciferol (vitamin D3) 1,250 mcg PO QWEEK 12 days clonazepam 0.5 mg PO DAILY PRN fluticasone propion-salmeterol 250-50 mcg/dose (Wixela Inhub) 1 ea inhalation BID fluticasone propionate 50 mcg/actuation (Allergy Relief (fluticasone)) 2 sprays intranasal DAILY hydrochlorothiazide 12.5 mg PO DAILY ibuprofen 400 mg PO Q8H indomethacin 25 mg PO TID PRN 30 days rosuvastatin 5 mg PO DAILY temazepam 30 mg PO BEDTIME PRN 30 days HPI Comments Details: 43-yr-old male presents for follow-up visit of sleep apnea. Pt denies interval medical history changes. He does note increased stress and time constraints as his has been dx'd w/ young onset colon CA, Interval brain MRI was unremarkable- showing only minimal nonspecific white matter changes. Labs were notable for low vitamin D level and elevated CRP w/ normal ESR. Does have h/o HLD on low dose statin. Pt was started on vit D supplement and f/u labs show improvement in vit D level. Pt notes he has tried to lose weight but difficult with work, his 's condition, and having a 7 yr old dtr to care for. 01/15/24 04/16/24 12:00 14:13 ESR 10 C-React Prot High Sens 12.1 H Vitamin B12 517 25-OH Vitamin D Total 25 L 42 25-Hydroxy Vitamin D2 <4 <4 25-Hydroxy Vitamin D3 25 42 TSH 1.59 Rheumatoid Factor < 13.0 DEMETRA Screen NEGATIVE Pt reports the right anglican headache has resolved. After that he had episodes of brief severe pain from right shoulder up through top of right ear- lasting seconds- but taking his breathe away. However, these have resolved as well. He did try Indomethacin once- unsure of effect, as he has not had any further attacks since. He is still f/b Dr Keon Arguelles, neurology- who he did have f/u with after his last appt here. He continues to have difficulty transitioning from sleeping during the day to sleeping at night. Typically is able to sleep ok during the day. Does use black out curtains. States he is more of a night person. He uses temazepam for these transitions- typically a couple times a month. He tries to use his mouth guard more consistently. 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 Works a [employer] Schedule- 4 12 hr night shifts (4:30am-4:30pm) days f/b 3 days off f/b 3 12 hr day shifts (4:30am-4:30pm) f/b 1 day off f/b 3 12 hr night shifts f/b 3 days off f/b 4 12 hr day shift f/b 7 days off then the cycle repeats. 09/17/2022, HST: AHI 0.7/hr w/ O2 sanket 89% w/ SpO2 < 90% x's 0.1 min, SpO2 < 88% x's 0 min, and average SpO2 96%, snoring 48% of sleep time. [facility] Medical History (Updated 06/10/24 @ 19:22 by ERMA Jones) Elevated C-reactive protein (CRP) Peroneal tendonitis of right lower leg Occipital neuralgia Fatty liver Kidney, malrotation Surgical History No pertinent past surgical history Family History Sister Mental health disorder Father Brain cancer Mother Diabetes Social History Housing: House Alcohol intake: current Alcohol intake frequency: holidays/special occasions only Patient Tobacco Use Status: Never used Tobacco e-Cigarette/Vaping Use: Never Used Second Hand Smoke Exposure: No service: No Current occupational status: employed Current occupation: [employer] Current occupational exposures/hazards: No Cognitive needs: No Hearing needs: No Vision needs: No Physical Exam Vital Signs: Last Vital Signs Pulse 109 H 06/10/24 15:37 BP 130/78 06/10/24 15:37 Pulse Ox 96 06/10/24 15:37 Oxygen Delivery Method Room Air 06/10/24 15:37 BMI result Body Mass Index 34.6 Const General: no acute distress Orientation/consciousness: patient oriented x3 Resp Effort & Inspection: normal respiratory effort and able to speak in complete sentences Neuro Other: Bilateral TMJ tightness Signs of lower teeth wearing. Right temporal tenderness- not currently having an attacks today. General: patient oriented x3, gait normal and moves all extremities Cranial nerves: Yes CN's II-XII intact bilaterally Cognition (Neuro): normal cognition Gait exam (Neuro): Normal gait present Motor exam (neuro): 5/5 motor strength present throughout Psych Mental Status: mental status grossly normal Speech and movement: Clear speech present Attitude: cooperative Results Reviewed Results Reviewed: 01/04/24, MR/MR head/brain wo/w con IMPRESSION: 1. No acute intracranial abnormalities. No abnormal intracranial enhancement. 2. Minimal nonspecific white matter changes. 3. Moderate sinonasal mucosal disease. 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 Home sleep study- no evidence for sleep apnea, though there is snoring. Increase mouth guard use. Information previously shared on sleep hygiene/education in shifting shift work sleep disorders. For right sided stabbing headache w/o autonomic s/s: Reviewed labs. Recheck crp and fasting labs for common etiologies. Continue vit d supplement. Brain MRI w/wo- Minimal nonspecific white matter changes. No findings to account for pt's headache s/s. If headache recurs, resume Indomethacin 25mg po TID prn. Will follow-up upon review of above and patient to follow-up in clinic in 6 months or sooner prn. Orders: Orders Lipid Panel with Reflex Today E55.9 - Vitamin D deficiency, unspecified, E78.5 - Hyperlipidemia, unspecified, K76.0 - Fatty (change of) liver, not elsewhere classified, R79.82 - Elevated C-reactive protein (CRP) Complete Blood Count Auto Diff Today E55.9 - Vitamin D deficiency, unspecified, E78.5 - Hyperlipidemia, unspecified, K76.0 - Fatty (change of) liver, not elsewhere classified, R79.82 - Elevated C-reactive protein (CRP) CRP High Sensitivity Today E55.9 - Vitamin D deficiency, unspecified, E78.5 - Hyperlipidemia, unspecified, K76.0 - Fatty (change of) liver, not elsewhere classified, R79.82 - Elevated C-reactive protein (CRP) Erythrocyte Sedimentation Rate Today E55.9 - Vitamin D deficiency, unspecified, E78.5 - Hyperlipidemia, unspecified, K76.0 - Fatty (change of) liver, not elsewhere classified, R79.82 - Elevated C-reactive protein (CRP) Hemoglobin A1c Today E78.5 - Hyperlipidemia, unspecified, K76.0 - Fatty (change of) liver, not elsewhere classified, R73.9 - Hyperglycemia, unspecified Comprehensive Met. Panel Today E55.9 - Vitamin D deficiency, unspecified, E78.5 - Hyperlipidemia, unspecified, K76.0 - Fatty (change of) liver, not elsewhere classified, R79.82 - Elevated C-reactive protein (CRP) Medications: Refilled temazepam 30 mg PO BEDTIME 30 days PRN 30 caps 3RF insomnia Coding Level of Care Code Est Pt Level 4 (71650) Diagnoses Shift work sleep disorder G47.26 Insomnia G47.00 Unilateral headache R51.9 Vitamin D deficiency E55.9
--- OUTSIDE RECORDS SUMMARY | 2024-06-10 17:08 | XMS_ITS | Clinical Summary ---
Author Organization [facility] Address [address] [place] [id number] Care Team Providers Care Hydroponics Worker Name Role Phone Provider, Unknown Primary Care Provider [phone] Allergies No known active allergies Medications levalbuterol (XOPENEX) 0.63 MG/3ML nebulizer solution Take 1 vial by nebulization every 4 (four) hours as needed for wheezing. Active fluticasone-jacqueline meterol (ADVAIR) 250-50 mcg/inh diskus inhaler Inhale 1 puff 2 (two) times a day. Active omega-3 fatty acids (FISH OIL) 1000 MG Cap capsule Take by mouth. Act ca ergocalciferol (VITAMIN D2,DRISDOL) 99057 units Cap Take 50,000 Units by mouth once a week. Active Social History Tobacco Use Types Packs/Day Years Used Date Smoking Tobacco: Never Alcohol Use Standard Drinks/Week Comments No 0 (1 standard drink = 0.6 oz pur e alcohol) Sex and Gender Information Value Date Recorded Sex Assigned at Not on file Legal Sex Male 5:56 PM EDT Gender Identity Not on file [...] on patient's age to complete this topic Insurance [facility] [employer] Care Teams Hydroponics Worker Relationship Specialty Start Date End Date Provider, Unknown 1 DO NOT USE THIS RECORD PCP - General 11/08/15
--- OUTSIDE RECORDS SUMMARY | 2024-06-10 17:08 | XMS_ITS | Clinical Summary ---
Author Organization [facility] Address [address] [place] [address] Care Team Providers Care Commercial Lines Account Manager Name Role Phone Bessy Lawton Primary Care [...] - 19+ 3-dose series) 2000 COVID-19 Vaccine ( - 2023-2 5 season) 2023 Influenza (Season Ended) 2024 Zoster (Shingrix) (1 of 2) 10/12/2031 HPV [...] age to complete this topic Care Teams Commercial Lines Account Manager Relationship Specialty Start Date End Date Bessy Lawton PCP - General 09/16/22
== END 2024-06-10 16:06 | disposition home or self-care (01) ==
LOC: HO.HSMS 15:23
PROVIDERS: PCP Nurse Practitioner Family; Visit Provider Nurse Practitioner Family
DX: G47.26 Circadian rhythm sleep disorder, shift work type (principal); G47.00 Insomnia, unspecified; R51.9 Headache, unspecified; E55.9 Vitamin D deficiency, unspecified
CPT/HCPCS: 99214

== ENCOUNTER → 2024-06-10 15:22 | Outpatient (BNVA) | payer BC, SELFPAY | PROVIDERS: PCP Nurse Practitioner Family; Visit Provider Nurse Practitioner Family ==

== ENCOUNTER 2024-09-27 09:52 | Outpatient (REF) | payer BC, SELFPAY ==
--- OUTSIDE RECORDS SUMMARY | 2024-09-27 10:40 | XMS_ITS | Clinical Summary ---
Author Organization [facility] Address [address] [place] [address] Care Team Providers Care Copy Supervisor Name Role Phone Bessy Lawton Primary Care [...] 98 01/23/2015 7:09 PM EST Temperature 36.7 C (98 F) 01/23/2015 7:09 PM EST Respiratory Rate - [...] ( - 2023-2 5 season) 2023 Influenza (#1) 2024 Zoster (Shingrix) (1 of 2) 10/12/2031 HPV Vaccine (No Doses Required) Completed Hep A Aged Out No longer eligi ble based on patient's age to complete this topic Hib Aged Out No longer eligi ble based on patient's age to complete this topic Meningococcal ACWY Aged Out No longer eligible based on patient's age to complete this topic Pneumococcal Aged Out No longer eligi ble based on patient's age to complete this topic Care Teams Copy Supervisor Relationship Specialty Start Date End Date Bessy Lawton PCP - General 09/16/22
--- OUTSIDE RECORDS SUMMARY | 2024-09-27 10:40 | XMS_ITS | Encounter Summary ---
Author Organization [facility] Address [address] [place] [id number] Phone Care Team Providers Care Catering Server Name Role Phone Rolo Garcia MD Primary Care Provider [phone] Reason for Referral * MRI/CAT Scan - Closed Specialty Diagnoses / Procedures Referred By Apolinar suarez Referred To Contact Radiology Diagnoses LLQ abdominal pain Procedures CT Abdomen/Pelvis System, Provider Not In, PhD [address] [address] Referral ID Status Reason Start Date Expiration Date Visits Re quested Visits Authorized [id number] Closed 05/01/2018 05/01/2019 1 1 Encounter Details Date Type Department Care Team (Latest Contact Info) Description 05/01/2018 Transcribe Orders Virtual Department [address] [place] [address] Leandra Tobin PA [address] [place] [id number] LLQ abdominal pain (Primary Dx) Social History Tobacco Use Types Packs/Day Years Used Date Smoking Tobacco: Never Smokeless Tobacco: Never Alcohol Use Standard Drinks/Week Comments Yes 0 (1 standard drink = 0.6 oz pur e alcohol) occasionally Sex and Gender Information Value Date Recorded Sex Assigned at Not on file Legal Sex Male 9:19 PM EDT Gender Identity Not on file Sexual Orientation Not on file documented as of this encounter Plan of Treatment Not on file documented as of this encounter Results * CT ABDOMEN/PELVIS WITH CONTRAST (05/15/2018 11:10 AM EDT) Anatomical Region Laterality Modality Abdomen, Pelvis Computed Tomogra phy 05/15/2018 11:2 7 AM EDT Impressions 05/15/2018 11:32 AM EDT 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 This is unchanged. No hydronephrosis or nephrolithiasis is evident. No explanation for left lower quadrant pain is seen. TOTAL CTDIvol: 10.90 mGy S/S: Diarrhea, left lower quadrant abdominal pain POS - [id number] Narrative 05/15/2018 11:32 AM EDT COMPARISON: CT abdomen and pelvis 01/04/2008 TECHNIQUE: After the administration of oral and intravenous contrast, multidetector CT is obtained from dome of the liver through the inferior pubic rami. Multiplanar reformatted images generated. Automated exposure control utilized. FINDINGS: The lung bases are clear. No significant pleural fluid is seen. The liver is homogeneous. No focal findings concern are noted. No bile duct dilatation is seen. The spleen is unremarkable. The pancreas appears normal. No adrenal masses are noted. The kidneys are unremarkable. No hydronephrosis or nephrolithiasis is seen. There is an unusual orientation of the right kidney noted but this is unchanged. No periaortic lymphadenopathy is seen. The bowel pattern is non-specific without bowel distention or displacement. There is a mild amount of stool the colon. There is negligible diverticulosis noted. No findings of diverticulitis are seen. No mural thickening or pericolonic infiltration is seen. Nonspecific inguinal lymph nodes are noted. There are mild degenerative changes in the thoracolumbar spine. Procedure Note Marcos Cade MD - 05/15/2018 COMPARISON: CT abdomen and pelvis 01/04/2008 TECHNIQUE: After the administration of oral and intravenous contrast,multidetector CT is obtained from dome of the liver through the inferiorpubic rami. Multiplanar reformatted images generated. Automated exposurecontrol utilized. FINDINGS: The lung bases are clear. No significant pleural fluid is seen. The liver is homogeneous. No focal findings concern are noted. No bileduct dilatation is seen. The spleen is unremarkable. The pancreas appears normal. No adrenal masses are noted. The kidneys are unremarkable. No hydronephrosis or nephrolithiasis isseen. There is an unusual orientation of the right kidney noted but thisis unchanged. No periaortic lymphadenopathy is seen. The bowel pattern is non-specific without bowel distention ordisplacement. There is a mild amount of stool the colon. There isnegligible diverticulosis noted. No findings of diverticulitis are seen.No mural thickening or pericolonic infiltration is seen. Nonspecific inguinal lymph nodes are noted. There are mild degenerative changes in the thoracolumbar spine. 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 This is unchanged. No hydronephrosis ornephrolithiasis is evident. No explanation for left lower quadrant pain is seen. TOTAL CTDIvol: 10.90 mGy S/S: Diarrhea, left lower quadrant abdominal pain POS - [id number] us Provider Not In System PhD IMG CT ABD/PELVIS Fin al Result documented in this encounter Visit Diagnoses Diagnosis LLQ abdominal pain- Primary Abdominal pain, left lower quadrant LLQ abdominal pain Abdominal pain, left lower quadrant documented in this encounter Additional Health Concerns Infection Onset Date Last Indicated Resolved Time CoV-Risk 08/30/2019 08/31/2019 09/13/2019 1:23 AM EDT Assessment Noted Time PHQ-2 Depression Total Score: 0 01/24/20 18 3:13 PM EST documented as of this encounter Care Teams Catering Server Relationship Specialty Start Date End Date Rolo Garcia MD [address] [place] [id number] [email or web address] PCP - General Internal Medicine 12/17/16 documented as of this encounter Additional Source Comments The information contained in this document represents components of the legal health record. It is not the complete legal health record.[facility]
--- OUTSIDE RECORDS SUMMARY | 2024-09-27 10:40 | XMS_ITS | Clinical Summary ---
Author Organization [facility] Address [address] [place] [address] Care Team Providers Care Winery Worker Name Role Phone Provider, Unknown Primary [...] by mouth. Act ca ergocalciferol (VITAMIN D2,DRISDOL) 56218 units Cap Take 50,000 Units by mouth [...] 71 11/09/2015 12:41 AM EDT Temperature 36.4 C (97.6 F) 11/09/2015 12:41 AM EDT Respiratory Rate 18 11/09/2015 12:41 AM EDT [...] of 3 - 19+ 3-dose series) 2000 HPV Vaccines (1 - 3-dose SCD M series) 2008 COVID-19 Vaccine (1 - 2023-2 5 season) 2023 Influenza Vaccine 09/10/2024 Pneumococcal Vaccine: Pediat marquita (0-5 Years) and At-Risk Patients (6 to 49 Years) Aged Out No longer eligible b ased on patient's age to complete this topic Insurance [facility] WORKER'[employer] Care Teams Winery Worker Relationship Specialty Start Date End Date Provider, Unknown 1 DO NOT USE THIS RECORD PCP - General 11/08/15
[2024-09-27 12:59] LABS: Appearance Urine Clear; Glucose Urine UA Negative (Negative); PH >= 9.0 (5.0-9.0); Specific Gravity - Urine 1.025 (1.005-1.025); UMIC TRIGGER UACC YES
[2024-09-27 13:16] LABS: MANUAL DIFF FLAG NO
[2024-09-27 13:23] LABS: Hematocrit 46.1 % (42.0-52.0); Hemoglobin 16.2 g/dl (14.0-18.0); Imm Gran Abs Auto 0.01 X10*3/uL (0.00-0.03); Imm Gran Pct Auto 0.2 % (0.0-0.4); Lymphocytes Absolute Auto 2.5 X10*3/uL (1.2-4.9); Mean Corpuscular HGB Conc 35.1 g/dl (31.0-36.0); Mean Corpuscular Hemoglobin 31.6 pg (27.0-33.0); Mean Corpuscular Volume 89.9 fL (80.0-98.0); NRBC Abs Auto 0.000 X10*3/uL (0.0-0.012); NRBC Pct Auto 0.0 /100WBC (0.0-0.2); Platelet Count 241 X10*3/uL (160-400); Red Blood Count 5.13 X10*6/uL (4.60-5.80); White Blood Count 5.8 X10*3/uL (4.8-10.8)
[2024-09-27 13:39] LABS: Hemoglobin A1C 133.9802 umol/L; Total Hemoglobin (HGBA1C) 4175.6416 umol/L
[2024-09-27 13:50] LABS: Alanine Aminotransferase 49 U/L (0-40); Albumin Level 5.2 g/dL (3.5-5.0); Alkaline Phosphatase 71 U/L (39-117); Anion Gap 14 (12-20); Aspartate Amino Transferase 40 U/L (5-37); Blood Urea Nitrogen 15 mg/dL (9-16); Calcium 9.9 mg/dL (8.4-10.2); Carbon Dioxide 30 mmol/L (22-29); Chloride 101 mmol/L (96-108); Cholesterol 184 mg/dL (<200); Cholesterol 185 mg/dL (<200); Estimated Glomerular Filt Rate > 60; HDL Cholesterol 41 mg/dL (>40); Potassium 3.9 mmol/L (3.3-5.1); Sodium 141 mmol/L (135-145); Total Protein 8.1 g/dL (6.5-8.0); Triglycerides 334 mg/dL (<150); Triglycerides 335 mg/dL (<150)
[2024-09-27 14:22] LABS: Reflex LDLD? No
== END 2024-09-27 09:53 | disposition home or self-care (01) ==
LOC: HO.HMGCLDS 09:52
PROVIDERS: PCP Nurse Practitioner Family; Referring Provider Nurse Practitioner Family; Visit Provider Nurse Practitioner Family
DX: Z00.00 Encounter for general adult medical examination without abnormal findings (principal); R14.0 Abdominal distension (gaseous); R79.82 Elevated C-reactive protein (CRP); K76.0 Fatty (change of) liver, not elsewhere classified; E78.5 Hyperlipidemia, unspecified; E55.9 Vitamin D deficiency, unspecified
CPT/HCPCS: 36415; 80053; 80061; 81001; 83036; 84443; 85025; 85652; 86141

== ENCOUNTER 2024-09-27 10:13 | Outpatient (AMB) | payer BC, SELFPAY ==
[2024-09-27 11:38] VITALS: BP 132/90; PULSE 111; TEMP 37.3; O2SAT 97; BMI 35.1
--- NOTE | 2024-09-27 11:38 | MHC.OFFWIV ---
Intake Vital Signs 09/27/24 11:38 Height 5 ft 11 in Weight 252 lb BMI 35.1 BP 132/90 H Blood Pressure Location Lt brachial Position Sitting Pulse 111 H Pulse Source Pulse Oximeter Temp 99.1 F Temp Source Oral Pulse Oximetry (%) 97 Oxygen Delivery Method Room Air Intake Visit Reasons: EP-abd pain, throat issues Patient Tobacco Use Status: Never used Tobacco Complaint Evaluation Officer Required: No Allergies mold Allergy (Intermediate, Verified 09/27/24 11:41) triggers asthma Do you need a note to return to daycare/school/sports/work: No HPI HPI Comments History of Present Illness Details History of Present Illness - The patient is a 43-year-old male presenting with gastrointestinal symptoms. - Reports fullness in the upper abdomen for three months, leading to early satiety and frequent burping. - Has a weird sensation in his chest pointing to where his esophagus leads to his stomach - Experiences liquid stools several times a week for the past three weeks, without blood or black discoloration. - Recently noted a sensation in the throat, with no history of choking or reflux diagnosis. - Denies fever, weight loss, or nausea; occasional bloating after meals. - No prior upper endoscopy or known esophageal diagnoses. - History of elevated heart rate, which he states is due to anxiety, currently 111 bpm. Physical Exam General: Cooperative, healthy appearing, comfortable, no acute distress and well developed Orientation: Patient oriented x3 Limitations: No limitations Head: Normal to inspection Ears: Hearing grossly normal bilaterally Nose: Normal External nose present Face and sinus: Normal facial exam Eyes: Appearance normal, both eyes and all related structures Neck: Normal visual inspection and Yes full ROM Respiratory: Normal respiratory effort and able to speak in complete sentences. Skin: No rashes or lesions noted Neuro: Patient oriented x3 Extremities: Normal to inspection [facility] Medical History Peroneal tendinitis, right leg Elevated C-reactive protein (CRP) Peroneal tendonitis of right lower leg Occipital neuralgia Fatty liver Kidney, malrotation Surgical History No pertinent past surgical history Family History Sister Mental health disorder Father Brain cancer Mother Diabetes Social History Housing: House Alcohol intake: current Alcohol intake frequency: holidays/special occasions only Patient Tobacco Use Status: Never used Tobacco e-Cigarette/Vaping Use: Never Used Second Hand Smoke Exposure: No service: No Current occupational status: employed Current occupation: [employer] Current occupational exposures/hazards: No Cognitive needs: No Hearing needs: No Vision needs: No Review of Systems Const All systems reviewed & are unremarkable except as noted in HPI and below Physical Exam Vital Signs: Last Vital Signs Temp 99.1 F 09/27/24 11:38 Pulse 111 H 09/27/24 11:38 BP 132/90 H 09/27/24 11:38 Pulse Ox 97 09/27/24 11:38 Oxygen Delivery Method Room Air 09/27/24 11:38 BMI result Body Mass Index 35.1 Assessment & Plan Assessment & Plan (1) Excessive upper gastrointestinal gas: Code(s): R14.0 - Abdominal distension (gaseous) Plan: Plan - Conduct Helicobacter pylori breath test to rule out infection as a cause of symptoms. - Consider trial of Pepcid for symptomatic relief of gastrointestinal discomfort, with instructions to take twice daily x7 days, then once daily. - If Helicobacter pylori test is negative, consider further evaluation with barium swallow or esophageal assessment, pt has appt with PCP next week. Patient was informed and verbally consented to the use of an ambient scribe for clinic note documentation during this visit. Orders: Orders H Pylori Breath Test Today R14.0 - Abdominal distension (gaseous) Coding Level of Care Code Est Pt Level 4 (57093) Diagnoses Excessive upper gastrointestinal gas R14.0
== END 2024-09-27 15:18 | disposition home or self-care (01) ==
PROVIDERS: PCP Nurse Practitioner Family; Visit Provider Physician Assistant
DX: R14.0 Abdominal distension (gaseous) (principal)

== ENCOUNTER 2024-09-27 20:02 | Outpatient (REF) | payer BC, SELFPAY ==
--- OUTSIDE RECORDS SUMMARY | 2024-09-27 20:09 | XMS_ITS | Encounter Summary ---
Author Organization [facility] Address [address] [place] [address] Phone Care Team Providers Care Facilities Operator Name Role Phone Rolo Garcia MD Primary Care Provider [phone]- [phone] Reason for Referral * MRI/CAT Scan - Closed Specialty Diagnoses / Procedures Referred By Apolinar suarez Referred To Contact Radiology Diagnoses LLQ abdominal pain Procedures CT Abdomen/Pelvis System, Provider Not In, PhD [address] [address] Referral ID Status Reason Start Date Expiration Date Visits Re quested Visits Authorized [id number] Closed 05/01/2018 05/01/2019 1 1 Encounter Details Date Type Department Care Team (Latest Contact Info) Description 05/01/2018 Transcribe Orders Virtual Department 30 [place] [address] Leandra Tobin PA [address] [place] [phone] LLQ abdominal pain (Primary Dx) Social History [...] documented as of this encounter Care Teams Facilities Operator Relationship Specialty Start Date End Date Rolo Garcia MD [address] [place] [address] [email or web address] PCP - General Internal Medicine 12/17/16 documented as of this encounter Additional Source Comments The information contained in this document represents components of the legal health record. It is not the complete legal health record.[facility]
--- OUTSIDE RECORDS SUMMARY | 2024-09-27 20:09 | XMS_ITS | Clinical Summary ---
Author Organization [facility] Address [address] [place] [address] Care Team Providers Care Java Sql Developer Name Role Phone Provider, Unknown Primary Care [...] by mouth. Act ca ergocalciferol (VITAMIN D2,DRISDOL) 29493 units Cap Take 50,000 Units by mouth [...] patient's age to complete this topic Insurance [facility] [employer] Care Teams Java Sql Developer Relationship Specialty Start Date End Date Provider, Unknown 1 DO NOT USE THIS RECORD PCP - General 11/08/15
== END 2024-09-27 20:03 | disposition home or self-care (01) ==
LOC: HO.HMGCLDS 20:02
PROVIDERS: Visit Provider Physician Assistant
DX: R14.0 Abdominal distension (gaseous) (principal)
CPT/HCPCS: 83013

== ENCOUNTER 2024-10-04 15:21 | Outpatient (AMB) | payer BC, SELFPAY ==
--- NOTE | 2024-10-04 15:29 | A.OFFPC_ITS ---
Vital Signs 10/04/24 15:30 10/04/24 15:54 Height 5 ft 11 in Weight 250 lb BMI 34.9 BP 132/82 Blood Pressure Location Lt brachial Position Sitting Respiration 16 Pulse 113 H 111 H Pulse Source Pulse Oximeter Pulse Oximeter Temp 100 F 99.2 F Temp Source Oral Oral Pulse Oximetry (%) 97 97 Oxygen Delivery Method Room Air Room Air Intake Visit Reasons: diarrhea Dehydrogenation Converter Operator Required: No Allergies mold Allergy (Intermediate, Verified 10/04/24 16:28) triggers asthma Medication List - Last Reconciled 10/04/24 by César Christopher, COMPUTER REPAIR ENGINEER- albuterol sulfate 90 mcg/actuation 2 puffs inhalation Q6H PRN amitriptyline 25 mg PO BEDTIME cholecalciferol (vitamin D3) 1,250 mcg PO QWEEK 12 days clonazepam 0.5 mg PO DAILY PRN fenofibric acid 105 mg PO DAILY fluticasone propion-salmeterol 250-50 mcg/dose (Wixela Inhub) 1 ea inhalation BID hydrochlorothiazide 12.5 mg PO DAILY ibuprofen 400 mg PO Q8H rosuvastatin 5 mg PO DAILY temazepam 30 mg PO BEDTIME PRN 30 days Tobacco use date assessed: 10/14/23 Dental Screening Dental Screen Date: 10/04/24 Did you have a dental visit in the last 12 months?: Yes Did you have a dental problem in the last 6 months where you did not have access to dental care?: No Was dental information given to patient?: Patient has dentist HPI diarrhea HPI Details Chief Complaint The patient presents with difficulty swallowing and gastrointestinal discomfort. History of Present Illness The patient is a 43-year-old male presenting with dysphagia and gastrointestinal symptoms. He reports experiencing difficulty swallowing for a few weeks, accompanied by abdominal cramping and frequent diarrhea. The patient also noted to have a low-grade fever of 100?F and tachycardia. He denies any chills or significant fever at home, although he presented with a low-grade fever during the visit. He was seen last week with similar symptoms, indicating a persistent issue. Additionally, micro hematuria noted in his urine, although he denies any costovertebral angle tenderness. trigs up, starting fenofibric acid Social History Health Maintenance Review of Systems - Gastrointestinal: Reports dysphagia, a bdominal cramping, and diarrhea, denies blood in stool - Constitutional: Reports low-grade feve r, denies chills - Cardiovascular: denies any cp, sob, so re throat - Genitourinary: denies costovertebral angle tenderness Physical Exam General: Cooperative, healthy appearing, comfortable, no acute distress and well developed Orientation: Patient oriented x3 Limitations: No limitations Head: Normal to inspection Ears: Hearing grossly normal bilaterally Nose: Normal external nose present Face and sinus: Normal facial exam Eyes: Appearance normal, both eyes and all related structures Neck: Normal visual inspection and Yes full ROM Respiratory: Normal respiratory effort and able to speak in complete sentences. Clear to auscultation bilaterally Cardiovascular: tachy. Normal S1 and S2 GI/gu: Normal to inspection. Soft to palpation and nontender, no cva tenderness noted bilat Skin: No rashes or lesions noted Neuro: Patient oriented x3 Extremities: Normal to inspection Results Plan encouraged to gets more labs drawn tomorrow. Encouraged further imaging, encouraged ER with any worsening symptoms 1. Dysphagia An esophagram is planned to evaluate the cause of dysphagia. 2. Abdominal Cramping And Diarrhea A CT scan and stool studies are ordered to investigate the gastrointestinal symptoms. 3. microscopic Hematuria A CT scan is also intended to rule out renal stones as a cause of micohematuria. Discussion Notes I discussed with the patient the plan to perform an esophagram to investigate the dysphagia and a CT scan to evaluate the abdominal symptoms and microhematuria. I advised the patient to go to the emergency room if symptoms worsen, including increased fever, shortness of breath, or any other concerning symptoms, espcially /GI related. Patient Instructions - Follow up with the results of the esop hagram and CT scan. - Go to the emergency room if symptoms w orsen, such as increased fever or shortness of breath. [facility] Medical History Migraine without aura Peroneal tendinitis, right leg Elevated C-reactive protein (CRP) Peroneal tendonitis of right lower leg Occipital neuralgia Fatty liver Kidney, malrotation Surgical History No pertinent past surgical history Family History Sister Mental health disorder Father Brain cancer Mother Diabetes Social History Housing: House Alcohol intake: current Alcohol intake frequency: holidays/special occasions only Patient Tobacco Use Status: Never used Tobacco e-Cigarette/Vaping Use: Never Used Second Hand Smoke Exposure: No service: No Current occupational status: employed Current occupation: [employer] Current occupational exposures/hazards: No Cognitive needs: No Hearing needs: No Vision needs: No Questionnaire PHQ-9 Over the last 2 weeks, how often have you been bothered by any of the following problems? 1. Little interest or pleasure in doing things: not at all 2. Feeling down, depressed, or hopeless: not at all 3. Trouble falling or staying asleep, or sleeping too much: more than half the days 4. Feeling tired or having little energy: several days 5. Poor appetite or overeating: not at all 6. Feeling bad about yourself - or that you are a failure or have let yourself or your family down: not at all 7. Trouble concentrating on things, such as reading the newspaper or watching television: several days 8. Moving or speaking so slowly that other people could have noticed. Or the opposite - being so fidgety or restless that you have been moving around a lot more than usual: not at all 9. Thoughts that you would be better off or of hurting yourself in some way: not at all Total score: 4 Depression Screening Interpretation: Negative Depression Screening Done: Yes 53179 - PHQ-9 Billing: Yes Source: Developed by Drs. Donald Nunez, Adele Miller, Johnny Ribeiro and colleagues, with an educational jimi from [employer]. Thrive Questionnaire Date Thrive assessed: 09/27/24 I am a: Patient What is your living situation today?: I have a steady place to live Within the past 12 months, did the food you bought not last and you didn't have the money to get more?: Never true Within the past 12 months, did you worry whether your food would run out before you got money to buy more?: Never true Do you have trouble paying for medicines?: No Do you have trouble getting transportation to medical appointments?: No Do you have trouble paying your heating and electricity bill?: No Do you have trouble taking care of your child, family member or friend?: No Do you have trouble with day-to-day activities such as bathing, preparing meals, shopping, managing finances, etc.?: No Are you currently unemployed and looking for a job?: No Are you interested in more education?: No Please select the resources that you would like help with: None Currently or been in a relationship where the following occur: No concerns reported THRIVE Score: 0 AUDIT C Alcohol Use Questionnaire (AUDIT-C) 1. How often do you have a drink containing alcohol?: Monthly or less 2. How many drinks containing alcohol do you have on a typical day when you are drinking?: 1 or 2 3. How often do you have six or more drinks on one occasion?: Never Total Score: 1 TATIANNA-7 AMB Questionnaire TATIANNA-7 Date TATIANNA - 7 assessed: 10/04/24 Feeling nervous, anxious, or on edge: 1 = Several days Not being able to stop or control worryin = Several days Worrying too much about different things: 1 = Several days Trouble relaxin = Several days Being so restless that it is hard to sit still: 1 = Several days Becoming easily annoyed or irritable: 1 = Several days Feeling afraid as if something awful might happen: 1 = Several days Total TATIANNA-7 score (0-4 normal; 5-9 mild; 10-14 moderate; 15-21 severe): 7 Source: Developed by Drs. Donald Nunez, Adele Miller, Johnny Ribeiro and colleagues, with an educational jimi from [employer]. Physical exam (Primary Care) Vital Signs: Last Vital Signs Temp 100 F 10/04/24 15:30 Pulse 113 H 10/04/24 15:30 Resp 16 10/04/24 15:30 BP 132/82 10/04/24 15:30 Pulse Ox 97 10/04/24 15:30 Oxygen Delivery Method Room Air 10/04/24 15:30 Tobacco/Smoking Status: Tobacco use Status Tobacco use date assessed 10/14/23 10/04/24 15:32 Patient Tobacco Use Status Never used Tobacco 10/04/24 15:32 e-Cigarette/Vaping Use Never Used 10/04/24 15:32 PHQ-9: PHQ-9 Score PHQ-9: Total score 4 10/04/24 15:47 Depression Screening Interpretation: Negative Thrive Assessment: Date of Thrive Assessment Date Thrive assessed 09/27/24 10/04/24 15:32 Currently or been in a relationship where the following occur: No concerns reported Coding Level of Care Code Est Pt Level 4 (21247) Diagnoses Fever R50.9 Diarrhea R19.7 Dysphagia R13.10 Tachycardia R00.0 Dyslipidemia E78.5 Additional Codes PHQ-9 - 79328 - PHQ-9 Billing: Yes ([id number]) Assessment & Plan Assessment & Plan (1) Fever: Code(s): R50.9 - Fever, unspecified Category: Medical (2) Diarrhea: Code(s): R19.7 - Diarrhea, unspecified Category: Medical (3) Dysphagia: Code(s): R13.10 - Dysphagia, unspecified Category: Medical (4) Tachycardia: Code(s): R00.0 - Tachycardia, unspecified Category: Medical (5) Dyslipidemia: Code(s): E78.5 - Hyperlipidemia, unspecified Category: Medical Plan . Orders: Orders FL Modified Barium Swallow Today R13.10 - Dysphagia, unspecified GI Panel Today R19.7 - Diarrhea, unspecified, R50.9 - Fever, unspecified C Reactive Protein Today R13.10 - Dysphagia, unspecified, R50.9 - Fever, unspecified D Dimer High Sensitivity Today R00.0 - Tachycardia, unspecified Comprehensive Met. Panel Today R00.0 - Tachycardia, unspecified Comprehensive [place]. Panel Fast 2 Months E78.5 - Hyperlipidemia, unspecified CT abdomen pelvis w IV con Today R19.7 - Diarrhea, unspecified, R50.9 - Fever, unspecified Calprotectin, Fecal Today R13.10 - Dysphagia, unspecified, R50.9 - Fever, unspecified H pylori Ag Stool Today R13.10 - Dysphagia, unspecified, R50.9 - Fever, unspecified CDiff Gene PCR Today R13.10 - Dysphagia, unspecified, R50.9 - Fever, unspecified Erythrocyte Sedimentation Rate Today R13.10 - Dysphagia, unspecified, R50.9 - Fever, unspecified Complete Blood Count Auto Diff Today R00.0 - Tachycardia, unspecified AMB EKG-In Office Today R00.0 - Tachycardia, unspecified Lipid Panel 2 Months E78.5 - Hyperlipidemia, unspecified Medications: New fenofibric acid 105 mg PO DAILY 90 tabs 0RF
[2024-10-04 15:30] VITALS: BP 132/82; PULSE 113; RESP 16; TEMP 37.7; O2SAT 97; BMI 34.9
[2024-10-04 15:54] VITALS: PULSE 111; TEMP 37.3; O2SAT 97
--- OUTSIDE RECORDS SUMMARY | 2024-10-04 16:59 | XMS_ITS | Encounter Summary ---
Author Organization [facility] Address [address] [place] [address] Phone Care Team Providers Care Applications Engineer Name Role Phone Rolo Garcia MD Primary Care Provider [phone]- [phone] Encounter Details Date Type Department Care Team (Latest Contact Info) Description 04/30/2018 Transcribe Orders [facility] [address] [address] Leandra Tobin PA [address] [place] [address] Abdominal pain, left lower quadrant (Primary Dx) Social History Tobacco Use Types [...] documented as of this encounter Results * C-Reactive Protein (04/30/2018 9:26 AM EDT) C REACTIVE PROTEIN 1.0 0.0 - 4.0 mg/L [facility] Blood 04/30/2018 9:26 AM EDT 04/30/2018 9:33 AM EDT us Leandra SEO LAB BLOOD ORDERABLES Final Result Performing Organization Address City/[facility] [address]/ZIP Co de Phone Number [address] [address] * (ABNORMAL) Comprehensive metabolic panel (04/30/2018 9:26 AM EDT) SODIUM 143 133 - 146 mmol/L [facility] POTASSIUM 3.4 3.3 - 5.1 mmol/L [facility] CHLORIDE 103 96 - 108 mmol/L [facility] CO2 27 21 - 35 mmol/L [facility] BUN 7 6 - 19 mg/dL [facility] CREATININE 0.80 0.5 - 1.5 mg/dL [facility] GLUCOSE 113(H) 70 - 99 mg/dL [facility] ALBUMIN 4.8 3.9 - 4.8 g/dL [facility] TOTAL PROTEIN 7.7 6.5 - 8.0 g/dL [facility] CALCIUM 10.0 8.4 - 10.3 mg/dL [facility] ALKALINE PHOSPHATASE 69 39 - 117 U/L [facility] TOTAL BILIRUBIN 0.4 0.0 - 1.2 mg/dL [facility] Comment: Results from certain multiple myeloma patients may show a positive bias in recovery. Not all multiple myeloma patients show the bias and severity of the bias may vary between patients. In very rare cases, gammopathy, in particular type IgM (Waldenstrom's macroglobulinemia), may cause unreliable results. AST 20 0 - 37 U/L [facility] ALT 36 0 - 40 U/L [facility] GLOBULIN 2.9 1 - 4.8 g/dL [facility] EGFR 115 >59 mL/min/1.7 3m2 [facility] Comment:If patient is black, multiply result by 1.159. Estimated glomerular filtration rate calculated using the CKD-EPI equation. ANION GAP 16 10 - 20 mmol/L [facility] Blood 04/30/2018 9:26 AM EDT 04/30/2018 9:33 AM EDT us Leandra SEO LAB BLOOD ORDERABLES Final Result [address] [address] * CBC (04/30/2018 9:26 AM EDT) WBC 5.70 3.40 - 11.20 K/uL [facility] RBC 4.99 4.50 - 5.50 M/uL [facility] HGB 15.5 13.0 - 17.0 g/dL [facility] HCT 44.0 40.0 - 51.0 % [facility] PLT 253 130 - 400 K/uL [facility] MCV 88.2 79.0 - 98.0 fL [facility] MCH 31.1 27.0 - 34.8 pg [facility] MCHC 35.2 31.5 - 36.0 g/dL [facility] RDW 12.1 10.8 - 14.6 % [facility] MPV 9.6 9.4 - 12.4 fl [facility] NRBC 0.00 0.00 /100 WBCs [facility] ABSOLUTE NRBC 0.00 0.00 K/uL [facility] Blood 04/30/2018 9:26 AM EDT 04/30/2018 9:33 AM EDT us Leandra SEO LAB BLOOD ORDERABLES Final Result [address] [address] documented in this encounter Visit Diagnoses Diagnosis Abdominal pain, left lower quadrant- Primary documented in this encounter Additional Health Concerns Infection Onset Date Last Indicated Resolved Time CoV-Risk 08/30/2019 08/31/2019 09/13/2019 1:23 AM EDT Assessment Noted Time PHQ-2 Depression Total Score: 0 01/24/20 18 3:13 PM EST documented as of this encounter Care Teams Applications Engineer Relationship Specialty Start Date End Date Rolo Garcia MD [address] [address] [email or web address] PCP - General Internal Medicine 12/17/16 documented as of this encounter Additional Source Comments The information contained in this document represents components of the legal health record. It is not the complete legal health record.[facility]
--- OUTSIDE RECORDS SUMMARY | 2024-10-04 16:59 | XMS_ITS | Encounter Summary ---
Author Organization [facility] Address [address] [place] [address] Phone Care Team Providers Care Regional Engagement Consultant Name Role Phone Rolo Garcia MD Primary Care Provider +1- [phone] Encounter Details Date Type Department Care Team ([facility] st Contact Info) Description 12/01/2019 Procedure Pass [facility] Echo Lab [address] [place] [address] Social History Tobacco Use Types Packs/Day Years [...] on file documented as of this encounter Visit Diagnoses Not on filedocumented in this encounter Additional Health Concerns Assessment Noted Time PHQ-2 Depression Total Score: 0 01/24/20 18 3:13 PM EST documented as of this encounter Care Teams Regional Engagement Consultant Relationship Specialty Start Date End Date Rolo Garcia MD [address] [place] [id number] [email or web address] PCP - General Internal Medicine 12/17/16 documented as of this encounter Additional Source Comments The information contained in this document represents components of the legal health record. It is not the complete legal health record.[facility]
--- OUTSIDE RECORDS SUMMARY | 2024-10-04 16:59 | XMS_ITS | Encounter Summary ---
Author Organization [facility] Address [address] [place] [address] Phone Care Team Providers Care Landfill Attendant Name Role Phone Rolo Garcia MD Primary Care Provider +1- [phone] Reason for Referral * MRI/CAT Scan - Closed Specialty Diagnoses / Procedures Referred By Apolinar suarez Referred To Contact Procedures CT Abdomen/Pelvis Outside (No Interpretation) System, Provider [place] In, [place] [address] Referral ID Status Reason Start Date Expiration Date Visits Re quested Visits Authorized [id number] Closed 11/18/2018 11/18/2019 1 1 Encounter Details Date Type Department Care Team (Late st Contact Info) Description 11/18/2018 Ancillary Orders [facility],Outside Imaging [address] [place] [address] System, Provider Not In, PhD [address] [address] Social History Tobacco Use Types Packs/Day Years [...] as of this encounter Results * CT Abdomen/Pelvis Outside (No Interpretation) (04/08/2018 12:00 AM EST) Narrative SYSTEMGENERATED, DOCUMENTATION - 11/18/2018 3:58 PM EDT This study is for PACS storage only and not for interpretation. us Provider Not In System PhD IMG OUTSIDE IMAGING W /OUT INTERPRETATION Final Result documented in this encounter Visit Diagnoses Not on filedocumented in this encounter Additional Health Concerns Infection Onset Date Last Indicated Resolved Time CoV-Risk 08/30/2019 08/31/2019 09/13/2019 1:23 AM EDT Assessment Noted Time PHQ-2 Depression Total Score: 0 01/24/20 18 3:13 PM EST documented as of this encounter Care Teams Landfill Attendant Relationship Specialty Start Date End Date Rolo Garcia MD [address] [address] [email or web address] PCP - General Internal Medicine 12/17/16 documented as of this encounter Additional Source Comments The information contained in this document represents components of the legal health record. It is not the complete legal health record.[facility]
--- OUTSIDE RECORDS SUMMARY | 2024-10-04 16:59 | XMS_ITS | Clinical Summary ---
Author Organization [facility] Address [address] [place] [address] Phone Care Team Providers Care Allied Health Professional Name Role Phone Rolo Garcia MD Primary Care Provider +1- [phone] Allergies Active Allergy Reactions Criticality Noted Date Comments Mold Extracts 01/23/2018 Medications amitriptyline (ELAVIL) 25 MG tablet Take 25 mg by mouth nightly at bedtime. Active omega 4-oby-xxp-fish oil 1,000 mg (120 mg-180 mg) Cap Take 2 capsules by mouth daily. Active albuterol (PROAIR HFA) 90 mcg/actuation inhaler Inhale 1-2 puffs into the lungs 4 (four) times a day as needed for wheezing. 3 Inhaler 8 Active cholecalciferol (VITAMIN D3) 5,000 unit capsule Take 5,000 Units by mouth daily. Active fluticasone propionate (FLOVENT DISKUS) 250 mcg/actuation DsDv Inhale 1 puff into the lungs 2 (two) times a day. 3 each 3 0 Active Additional Information Patient taking differently:1 puff Inhalation2 times daily PRN, Reported on 04/28/2020 temazepam (RESTORIL) 30 mg capsule Take 1 capsule (30 mg total) by mouth nightly at bedtime as needed. 30 capsule 5 1 Active melatonin 3 mg Tab Take 3 mg by mouth nightly at bedtime. Active fluticasone propion-salmete roL (ADVAIR DISKUS) 250-50 mcg/dose DISKUS Inhale 1 puff into the lungs 2 (two) times a day. 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 Refer to orthopedics. Trial of tramadol. Hypertriglyceridemia Panic disorder Irritable bowel syndrome Overview (01/05/2017): Colonoscopy 12/09/07 was negative to right colon; the scope was unable to get to the cecum. Double contrast upper GI small bowel follow through 11/20/[address] of abdomen 01/04/08. Headache Overview (01/05/2017): Seen by Dr. Urbina and OBeto. Treatment with amitriptyline has been helpful. Fatty liver Immunizations Immunization Administration Dates Next Due COVID-19 (Pre-12/02) Pfizer Vaccine, mRNA, PF ,04/09/2020 Influenza Quadrivalent Preservative Free IM 11/10 Influenza Quadrivalent w/ Preservative IM 2018,12/04/2017 Influenza Recombinant Dottie valent Preservative Free IM 10/15/2019 Pneumococcal polysaccharide PPSV23 04/09/2018, Tdap 06/24/2016 Family History Medical History Relation Comments Hyperlipidemia Father Stroke Father mini stroke Diabetes mellitus Mother insulin depend ent Hyperlipidemia Mother Heart attack Paternal Grandfather Bipolar disorder Sister Hyperlipidemia Sister Overweight Sister Relation Status Comments Father Mother Paternal Grandfather Sister Social History Tobacco Use Types Packs/Day Years Used Date Smoking Tobacco: Never Smokeless Tobacco: Never Alcohol Use Standard Drinks/Week Comments Yes 0 (1 standard drink = 0.6 oz pur e alcohol) occasionally Child or Family Care Answer Date Record ed Do you have problems with on e of the following making it difficult for you to work, study, or receive health care? No 12/27/2020 Education Answer Date Recorded Are you interested in more education? Not on tyree e 01/07/2023 Are you concerned about learning? Not on file 01/07/2023 No 01/07/2023 No 01/07/2023 Food Answer Date Recorded Within the past 6 months we worried whether our food would run out before we got money to buy more. Never True 12/27/2020 Within the past 6 months the food we bought just didn't last and we didn't have enough money to get more. Never True Residential Stability Answer Date Recor ded What is your housing situation today? I have vivian stevens 12/27/2020 How many times have you move d in the past 12 months? Zero (I did not move) 12/27/2020 06 Are you worried that in t he next 2 months, you may not have your own housing to live in? No 12/27/2020 Paying for Meds Answer Date Recorded Do you have trouble paying for medicines? No 12/27/2020 Paying Utility Bills Answer Date Record ed Do you have trouble paying your heating or elect ricity bill? No 12/27/2020 Transportation Answer Date Recorded Has the lack of transportati on kept you from medical appointments or from getting medications? No 12/27/2020 Unemployment Answer Date Recorded Are you currently unemployed or working on a part-time or temporary basis, and looking for work? No 12/27/2020 Digital Access Answer Date Recorded No 07/08/2022 No 07/08/2022 No 07/08/2022 Reliable internet access at home? Not on file 07/08/2022 Device with a working camera? Not on file Sex and Gender Information Value Date Recorded Sex Assigned at Not on file Legal Sex Male 9:19 PM EDT Gender Identity Not on file Sexual Orientation Not on file Last Filed Vital Signs Vital Sign Reading Time Taken Comments Blood Pressure 155/95 07/19/2021 2:36 PM EDT Pulse 100 07/19/2021 2:36 PM EDT Temperature 37.4 C (99.4 F) 01/31/2020 5:41 PM EST Respiratory Rate 18 07/19/2021 2:36 PM EDT Oxygen Saturation 99% 07/19/2021 2:36 PM EDT Inhaled Oxygen Concentration - - Weight 102.1 kg (225 lb) 03/02/2021 10:48 AM EST Height 180.3 cm (5' 10.98 ) 08/18/2020 10:26 AM EDT Body Mass Index 31.4 08/18/2020 10:26 AM EDT Plan of Treatment Health Maintenance Due Date Last Done Comments PNEUMOCOCCAL VACCINES (0-49 years) (2 of 2 - PCV) 04/09/2019 04/09/2018, 04/10/2005 DEPRESSION SCREENING 12/27/2021 12/27/2020 COVID-19 VACCINE ( season) 2023 01/06/2021, 04/30/2020, 04/09/2020 LIPID PANEL 12/25/2025 12/25/2020, 04/10, 04/20/2019, Additional history exists Adult Td,Tdap Booster 07/13/2032 07/13/2022, 017 HEPATITIS C SCREENING Completed 04/30/2018 HIV ONE-TIME SCREENING (18-65 YEARS) Completed 12/25/2020 SMOKING STATUS SCREENING (Once After 26 Yrs) Completed 07/19/2021 HEPATITIS A VACCINES Aged Out No long er eligible based on patient's age to complete this topic HIB VACCINES Aged Out No longer eligi ble based on patient's age to complete this topic MENINGOCOCCAL VACCINES (ACWY) Aged Out No longer eligible based on patient's age to complete this topic MENINGOCOCCAL VACCINES (B) Aged Out N o longer eligible based on patient's age to complete this topic Medical Devices Not on file Procedures Procedure Name Priority Date/Time Associated Diagnosis Comments LIPID PANEL Routine 12/25/2020 9:05 AM EST Mixed hyperlipidemia HEPATITIS C ANTIBODY, QUALITATIVE Routine 04/30/2018 9:26 AM EDT Elevated transaminase level from Last 3 Months or Most Recently Relevant to Health Maintenance Results * (ABNORMAL) Lipid panel (12/25/2020 9:05 AM EST) HDL 40 mg/dL [facility] Comment: Interpretation <40 mg/dL: Low HDL cholesterol (major risk factor for CHD) Greater than or equal to 60 mg/dL: High HDL cholesterol ( negative risk factor for CHD) HDL - cholesterol is affected by a number of factors, e.g. smoking, excerise, hormones, sex and age. CHOLESTEROL 192 0 - 240 mg/dL [facility] TRIGLYCERIDES 200(H) 30 - 160 mg/dL [facility] LDL 112 50 - 129 mg/dL [facility] Comment: LDL levels in terms of risk for coronary heart disease: <100 mg/dL: Optimal 100-129 mg/dL: Near or above optimal 130-159 mg/dL: Borderline high 160-189 mg/dL: High >190 mg/dL: Very High CARDIAC RISK RATIO 4.8 3.4 - 5.0 C [facility] Blood 12/25/2020 9:05 AM EST 12/25/2020 9:11 AM EST us Rolo Garcia MD LAB BLOOD ORDERABLES Final Result [address] [address] * Hepatitis C antibody, qualitative (04/30/2018 9:26 AM EDT) HCV Negative Negative [facility] Comment: This is a screening test and should be confirmed with molecular testing Blood 04/30/2018 9:26 AM EDT 04/30/2018 9:33 AM EDT Rolo Garcia MD LAB BLOOD ORDERABLES Final Result [address] [address] from Last 3 Months or Most Recently Relevant to Health Maintenance [place] [address] [place] [address] OUT OF STATE PPO BLUE CROSS OUT OF STATE PPO BLUE CROSS OUT OF STATE PPO BLUE [place]OSS OUT OF STATE PPO BLUE [place]OSS OUT OF STATE PPO BLUE [place] OUT OF STATE PPO BLUE [place]OSS OUT OF STATE PPO BLUE [place] OUT OF STATE PPO BLUE CROSS OUT OF STATE PPO Care Teams Allied Health Professional Relationship Specialty Start Date End Date Rolo Garcia MD [address] [place] [phone] [email or web address] PCP - General Internal Medicine 12/17/16 Additional Source Comments The information contained in this document represents components of the legal health record. It is not the complete legal health record.[facility]
--- OUTSIDE RECORDS SUMMARY | 2024-10-04 16:59 | XMS_ITS | Clinical Summary ---
Author Organization [facility] Address [address] [place] [address] Care Team Providers Care Bag Filler Name Role Phone Provider, Unknown Primary Care [...] by mouth. Act ca ergocalciferol (VITAMIN D2,DRISDOL) 37471 units Cap Take 50,000 Units by mouth [...] patient's age to complete this topic Insurance [facility] [place] [employer] Care Teams Bag Filler Relationship Specialty Start Date End Date Provider, Unknown 1 DO NOT USE THIS RECORD PCP - General 11/08/15
--- OUTSIDE RECORDS SUMMARY | 2024-10-04 16:59 | XMS_ITS | Encounter Summary ---
Author Organization [facility] Address [address] [place] [address] Phone Care Team Providers Care Linoleum Tile Floor Layer Name Role Phone Rolo Garcia MD Primary Care Provider +1- [phone] Reason for Referral * MRI/CAT Scan - Closed Specialty Diagnoses / Procedures Referred By Apolinar suarez Referred To Contact Radiology Diagnoses LLQ abdominal pain Procedures CT Abdomen/Pelvis System, Provider Not In, PhD [address] [address] Referral ID Status Reason Start Date Expiration Date Visits Re quested Visits Authorized [id number] Closed 05/01/2018 05/01/2019 1 1 Encounter Details Date Type Department Care Team (Latest Contact Info) Description 05/01/2018 Transcribe Orders Virtual Department [address] [place] [address] Leandra Tobin PA [address] [place] [phone] LLQ abdominal pain (Primary Dx) Social History [...] documented as of this encounter Care Teams Linoleum Tile Floor Layer Relationship Specialty Start Date End Date Rolo Garcia MD [address] [place] [phone] [email or web address] PCP - General Internal Medicine 12/17/16 documented as of this encounter Additional Source Comments The information contained in this document represents components of the legal health record. It is not the complete legal health record.[facility]
--- OUTSIDE RECORDS SUMMARY | 2024-10-04 16:59 | XMS_ITS | Clinical Summary ---
Author Organization [facility] Address [address] [place] [address] Care Team Providers Care Rubber Goods Tester Water Name Role Phone Bessy Lawton Primary Care [...] age to complete this topic Care Teams Rubber Goods Tester Water Relationship Specialty Start Date End Date Bessy Lawton PCP - General 09/16/22
== END 2024-10-04 16:56 | disposition home or self-care (01) ==
PROVIDERS: PCP Nurse Practitioner Family; Visit Provider Nurse Practitioner Family
DX: R50.9 Fever, unspecified (principal); R19.7 Diarrhea, unspecified; R13.10 Dysphagia, unspecified; R00.0 Tachycardia, unspecified; E78.5 Hyperlipidemia, unspecified

== ENCOUNTER → 2024-10-04 15:21 | Outpatient (BNVA) | payer BC, SELFPAY | PROVIDERS: PCP Nurse Practitioner Family; Visit Provider Nurse Practitioner Family | DX: R13.10 Dysphagia, unspecified (principal); R10.9 Unspecified abdominal pain; R19.7 Diarrhea, unspecified; R31.29 Other microscopic hematuria; R50.9 Fever, unspecified; R00.0 Tachycardia, unspecified; E78.5 Hyperlipidemia, unspecified | CPT/HCPCS: 96127 ==

== ENCOUNTER 2024-10-05 09:47 | Outpatient (REF) | payer BC, SELFPAY ==
--- OUTSIDE RECORDS SUMMARY | 2024-10-05 10:31 | XMS_ITS | Encounter Summary ---
Author Organization [facility] Address [address] [place] [address] Phone Care Team Providers Care Nuclear Power Reactor Operator Name Role Phone Rolo Garcia MD Primary Care Provider +1- [phone] Reason for Referral * MRI/CAT Scan - Closed Specialty Diagnoses / Procedures Referred By Apolinar suarez Referred To Contact Radiology Diagnoses LLQ abdominal pain Procedures CT Abdomen/Pelvis System, Provider Not In, PhD [address] [address] Referral ID Status Reason Start Date Expiration Date Visits Re quested Visits Authorized [id number] Closed 05/01/2018 05/01/2019 1 1 Encounter Details Date Type Department Care Team (Latest Contact Info) Description 05/01/2018 Transcribe Orders Virtual Department [address] [place] [address] Leandra Tobin PA [address] [place] [address] LLQ abdominal pain (Primary Dx) Social History [...] documented as of this encounter Care Teams Nuclear Power Reactor Operator Relationship Specialty Start Date End Date Rolo Garcia MD [address] [place] [address] [email or web address] PCP - General Internal Medicine 12/17/16 documented as of this encounter Additional Source Comments The information contained in this document represents components of the legal health record. It is not the complete legal health record.[facility]
--- OUTSIDE RECORDS SUMMARY | 2024-10-05 10:31 | XMS_ITS | Clinical Summary ---
Author Organization [facility] Address [address] [place] [address] Care Team Providers Care Paediatric Physiotherapist Name Role Phone Bessy Lawton Primary Care [...] age to complete this topic Care Teams Paediatric Physiotherapist Relationship Specialty Start Date End Date Bessy Lawton PCP - General 09/16/22
--- OUTSIDE RECORDS SUMMARY | 2024-10-05 10:32 | XMS_ITS | Encounter Summary ---
Author Organization [facility] Address [address] [place] [address] Phone Care Team Providers Care Rubberizing Mechanic Name Role Phone Rolo Garcia MD Primary Care Provider +1- [phone] Encounter Details Date Type Department Care Team (Latest Contact Info) Description 04/30/2018 Transcribe Orders [facility] [address] [address] Leandra Tobin PA [address] [place] [address] Abdominal pain, left lower quadrant (Primary Dx) [...] REACTIVE PROTEIN 1.0 0.0 - 4.0 mg/L [facility] Blood 04/30/2018 9:26 AM EDT 04/30/2018 9:33 AM EDT us Leandra SEO LAB BLOOD ORDERABLES Final Result Performing Organization Address City/[facility]/ZIP Co de Phone Number [address] [address] * (ABNORMAL) Comprehensive metabolic panel (04/30/2018 9:26 AM EDT) SODIUM 143 133 - 146 mmol/L [facility] POTASSIUM 3.4 3.3 - 5.1 mmol/L [facility] CHLORIDE 103 96 - 108 mmol/L [facility] CO2 27 21 - 35 mmol/L [facility] BUN 7 6 - 19 mg/dL [facility] CREATININE 0.80 0.5 - 1.5 mg/dL [facility] GLUCOSE 113(H) 70 - 99 mg/dL [facility] ALBUMIN 4.8 3.9 - 4.8 g/dL [facility] TOTAL PROTEIN 7.7 6.5 - 8.0 g/dL [facility] CALCIUM 10.0 8.4 - 10.3 mg/dL [facility] ALKALINE PHOSPHATASE 69 39 - 117 U/L [facility] TOTAL BILIRUBIN 0.4 0.0 - 1.2 mg/dL [facility] Comment: Results from certain multiple myeloma patients may show a positive bias in recovery. Not all multiple myeloma patients show the bias and severity of the bias may vary between patients. In very rare cases, gammopathy, in particular type IgM (Waldenstrom's macroglobulinemia), may cause unreliable results. AST 20 0 - 37 U/L [facility] ALT 36 0 - 40 U/L [facility] GLOBULIN 2.9 1 - 4.8 g/dL [facility] EGFR 115 >59 mL/min/1.7 3m2 [facility] Comment:If patient is black, multiply result by 1.159. Estimated glomerular filtration rate calculated using the CKD-EPI equation. ANION GAP 16 10 - 20 mmol/L [facility] Blood 04/30/2018 9:26 AM EDT 04/30/2018 9:33 AM EDT us Leandra SEO LAB BLOOD ORDERABLES Final Result [address] [address] * CBC (04/30/2018 9:26 AM EDT) WBC 5.70 3.40 - 11.20 K/uL [facility] RBC 4.99 4.50 - 5.50 M/uL [facility] HGB 15.5 13.0 - 17.0 g/dL [facility] HCT 44.0 40.0 - 51.0 % [facility] PLT 253 130 - 400 K/uL [facility] MCV 88.2 79.0 - 98.0 fL [facility] MCH 31.1 27.0 - 34.8 pg [facility] MCHC 35.2 31.5 - 36.0 g/dL [facility] RDW 12.1 10.8 - 14.6 % [facility] MPV 9.6 9.4 - 12.4 fl [facility] NRBC 0.00 0.00 /100 WBCs [facility] ABSOLUTE NRBC 0.00 0.00 K/uL [facility] Blood 04/30/2018 9:26 AM EDT 04/30/2018 9:33 AM EDT us Leandra SEO LAB BLOOD ORDERABLES Final Result [address] [address] documented in this encounter Visit Diagnoses Diagnosis Abdominal pain, left lower quadrant- Primary documented in this encounter Additional Health Concerns Infection Onset Date Last Indicated Resolved Time CoV-Risk 08/30/2019 08/31/2019 09/13/2019 1:23 AM EDT Assessment Noted Time PHQ-2 Depression Total Score: 0 01/24/20 18 3:13 PM EST documented as of this encounter Care Teams Rubberizing Mechanic Relationship Specialty Start Date End Date Rolo Garcia MD [address] [address] [email or web address] PCP - General Internal Medicine 12/17/16 documented as of this encounter Additional Source Comments The information contained in this document represents components of the legal health record. It is not the complete legal health record.[facility]
--- OUTSIDE RECORDS SUMMARY | 2024-10-05 10:32 | XMS_ITS | Clinical Summary ---
Author Organization [facility] Address [address] [place] [address] Phone Care Team Providers Care Seconds Grader Name Role Phone Rolo Garcia MD Primary Care Provider +1- [phone] Allergies Active Allergy Reactions Criticality Noted Date Comments Mold Extracts 01/23/2018 Medications amitriptyline (ELAVIL) 25 MG tablet Take 25 mg by mouth nightly at bedtime. Active omega 4-beo-zee-fish oil 1,000 mg (120 mg-180 mg) Cap [...] (12/25/2020 9:05 AM EST) HDL 40 mg/dL [facility] Comment: Interpretation <40 mg/dL: Low HDL cholesterol (major risk factor for CHD) Greater than or equal to 60 mg/dL: High HDL cholesterol ( negative risk factor for CHD) HDL - cholesterol is affected by a number of factors, e.g. smoking, excerise, hormones, sex and age. CHOLESTEROL 192 0 - 240 mg/dL [facility] TRIGLYCERIDES 200(H) 30 - 160 mg/dL [facility] LDL 112 50 - 129 mg/dL [facility] Comment: LDL levels in terms of risk for coronary heart disease: <100 mg/dL: Optimal 100-129 mg/dL: Near or above optimal 130-159 mg/dL: Borderline high 160-189 mg/dL: High >190 mg/dL: Very High CARDIAC RISK RATIO 4.8 3.4 - 5.0 C [facility] Blood 12/25/2020 9:05 AM EST 12/25/2020 9:11 AM EST us Rolo Garcia MD LAB BLOOD ORDERABLES Final Result [address] [address] * Hepatitis C antibody, qualitative (04/30/2018 9:26 AM EDT) HCV Negative Negative [facility] Comment: This is a screening test and should be confirmed with molecular testing Blood 04/30/2018 9:26 AM EDT 04/30/2018 9:33 AM EDT Rolo Garcia MD LAB BLOOD ORDERABLES Final Result [address] [address] from Last 3 Months or Most Recently Relevant to Health Maintenance [place] [address] OUT OF STATE PPO BLUE CROSS OUT OF STATE PPO BLUE CROSS OUT OF STATE PPO BLUE CROSS OUT OF STATE PPO BLUE CROSS OUT OF STATE PPO BLUE [place] OUT OF STATE PPO BLUE [place] OUT OF STATE PPO [place] OUT OF STATE PPO BLUE [place] OUT OF STATE PPO Care Teams Seconds Grader Relationship Specialty Start Date End Date Rolo Garcia MD [address] [place] [address] [email or web address] PCP - General Internal Medicine 12/17/16 Additional Source Comments The information contained in this document represents components of the legal health record. It is not the complete legal health record.[facility]
--- OUTSIDE RECORDS SUMMARY | 2024-10-05 10:32 | XMS_ITS | Encounter Summary ---
Author Organization [facility] Address [address] [place] [address] Phone Care Team Providers Care Dry Pan Feeder Name Role Phone Rolo Garcia MD Primary Care Provider +1- [phone] Encounter Details Date Type Department Care Team ([facility] st Contact Info) Description 12/01/2019 Procedure Pass [facility] [address] [place] [address] Social History Tobacco Use Types Packs/Day Years [...] documented as of this encounter Care Teams Dry Pan Feeder Relationship Specialty Start Date End Date Rolo Garcia MD [address] [place] [phone] [email or web address] PCP - General Internal Medicine 12/17/16 documented as of this encounter Additional Source Comments The information contained in this document represents components of the legal health record. It is not the complete legal health record.[facility]
--- OUTSIDE RECORDS SUMMARY | 2024-10-05 10:32 | XMS_ITS | Clinical Summary ---
Author Organization [facility] Address [address] [place] [address] Care Team Providers Care Trolley Collector Name Role Phone Provider, Unknown Primary Care [...] by mouth. Act ca ergocalciferol (VITAMIN D2,DRISDOL) [address] units Cap Take 50,000 Units by mouth [...] patient's age to complete this topic Insurance [facility] [place] [employer] Care Teams Trolley Collector Relationship Specialty Start Date End Date Provider, Unknown 1 DO NOT USE THIS RECORD PCP - General 11/08/15
--- OUTSIDE RECORDS SUMMARY | 2024-10-05 10:32 | XMS_ITS | Encounter Summary ---
Author Organization [facility] Address [address] [place] [address] Phone Care Team Providers Care Sales Analyst Name Role Phone Rolo Garcia MD Primary Care Provider +1- [phone] Reason for Referral * MRI/CAT Scan - Closed Specialty Diagnoses / Procedures Referred By Apolinar suarez Referred To Contact Procedures CT Abdomen/Pelvis Outside (No Interpretation) System, Provider [place] In, [place] [address] Referral ID Status Reason Start Date Expiration Date Visits Re quested Visits Authorized [id number] Closed 11/18/2018 11/18/2019 1 1 Encounter Details Date Type Department Care Team (Late st Contact Info) Description 11/18/2018 Ancillary Orders [facility],Outside Imaging [address] [place] [address] System, Provider Not In, PhD [address] [address] Social History Tobacco Use Types Packs/Day Years [...] documented as of this encounter Care Teams Sales Analyst Relationship Specialty Start Date End Date Rolo Garcia MD [address] [address] [email or web address] PCP - General Internal Medicine 12/17/16 documented as of this encounter Additional Source Comments The information contained in this document represents components of the legal health record. It is not the complete legal health record.[facility]
[2024-10-05 13:20] LABS: MANUAL DIFF FLAG NO
[2024-10-05 13:28] LABS: Hematocrit 47.5 % (42.0-52.0); Hemoglobin 17.0 g/dl (14.0-18.0); Imm Gran Abs Auto 0.02 X10*3/uL (0.00-0.03); Imm Gran Pct Auto 0.3 % (0.0-0.4); Lymphocytes Absolute Auto 2.6 X10*3/uL (1.2-4.9); Mean Corpuscular HGB Conc 35.8 g/dl (31.0-36.0); Mean Corpuscular Hemoglobin 31.9 pg (27.0-33.0); Mean Corpuscular Volume 89.1 fL (80.0-98.0); NRBC Abs Auto 0.000 X10*3/uL (0.0-0.012); NRBC Pct Auto 0.0 /100WBC (0.0-0.2); Platelet Count 254 X10*3/uL (160-400); Red Blood Count 5.33 X10*6/uL (4.60-5.80); White Blood Count 7.0 X10*3/uL (4.8-10.8)
[2024-10-05 13:44] LABS: D Dimer High Sensitivity < 150 NG/ML
[2024-10-05 13:53] LABS: Alanine Aminotransferase 44 U/L (0-40); Albumin Level 5.4 g/dL (3.5-5.0); Alkaline Phosphatase 74 U/L (39-117); Anion Gap 14 (12-20); Aspartate Amino Transferase 34 U/L (5-37); Blood Urea Nitrogen 14 mg/dL (9-16); Calcium 10.5 mg/dL (8.4-10.2); Carbon Dioxide 30 mmol/L (22-29); Chloride 98 mmol/L (96-108); Estimated Glomerular Filt Rate > 60; Potassium 3.7 mmol/L (3.3-5.1); Sodium 138 mmol/L (135-145); Total Protein 8.5 g/dL (6.5-8.0)
[2024-10-06 11:41] LABS: E. coli EAEC Not Detected (Not Detect.); E. coli EPEC Not Detected (Not Detect.); E. coli ETEC Not Detected (Not Detect.); E. coli STEC Not Detected (Not Detect.); Shigella sp./EIEC Not Detected (Not Detect.)
[2024-10-10 18:49] LABS: Calprotectin, Fecal 44 mcg/g
== END 2024-10-05 09:48 | disposition home or self-care (01) ==
LOC: HO.HMGCLDS 09:47
PROVIDERS: PCP Nurse Practitioner Family; Visit Provider Nurse Practitioner Family
DX: R00.0 Tachycardia, unspecified (principal); R50.9 Fever, unspecified; R13.10 Dysphagia, unspecified; R19.7 Diarrhea, unspecified
CPT/HCPCS: 36415; 80053; 83993; 85025; 85379; 85652; 86140; 87338; 87507

== ENCOUNTER 2024-10-13 11:06 | Outpatient (REF) | payer BC, SELFPAY ==
--- NOTE | ~2024-10-13 | CT_ITS ---
EXAMINATION: CT ABDOMEN AND PELVIS WITH CONTRAST CLINICAL INFORMATION: R50.9 - Fever, unspecified COMPARISON: Abdomen ultrasound September 10, 2023 TECHNIQUE: Multidetector volumetric images were obtained from the superior aspect of the liver through the pubic symphysis following administration 85 mL of Omnipaque 350 intravenous contrast. Sagittal and coronal reformatted images were obtained on the technologist's workstation. Oral contrast: No This CT examination was performed using dose optimization techniques as appropriate, variously including the following: *Automated exposure control *Adjustment of mA and/or kV according to patient size (this includes techniques or standardized protocols for targeted exams where dose is matched to indication/reason for exam; i.e. extremities or head) *Use of iterative reconstruction technique DLP: 640 mGY*cm FINDINGS: LUNG BASES: There is a 5 mm pulmonary nodule posterior right lower lobe that is not completely imaged. It is visible on a single image only. LIVER, GALLBLADDER, AND BILIARY TREE: Diffuse low attenuation is seen throughout the liver. The gallbladder is unremarkable with no evidence of radiopaque gallstones, gallbladder wall thickening, or obvious pericholecystic inflammatory changes. PANCREAS: Unremarkable. SPLEEN: Unremarkable. ADRENAL GLANDS: Unremarkable. KIDNEYS AND URETERS: Superior pole of the right kidney is dorsally located relative to the lower pole. The renal pelvis is situated anterolaterally. Kidneys are otherwise unremarkable. BLADDER: Unremarkable. GASTROINTESTINAL TRACT: The small and large bowel are unremarkable. The appendix is unremarkable. ABDOMINAL WALL: No significant hernia is appreciated. LYMPH NODES: Normal. VASCULAR: Unremarkable. PELVIC VISCERA: Unremarkable. OSSEOUS STRUCTURES: Moderate degenerative changes are present at L4-5 and L5-S1 with degenerative cystic and sclerotic changes in the endplates, vacuum phenomena, and moderate disc space loss of height. CT/CT abdomen pelvis w IV con IMPRESSION: Incompletely imaged 5 mm solid pulmonary nodule. The true size of the nodule is not certain and could potentially be larger. Follow up nonemergent CT chest without contrast. Otherwise, the flush aside recommendation for a 5 mm subpleural pulmonary nodule is for no further follow-up unless the patient falls into a high risk category, in which case a 12 month follow-up CT chest without contrast is optional. High risk patients includes those with a history of smoking, first-degree relative with lung cancer, or exposure to uranium, radon, or asbestos. Hepatic steatosis. Fleischner guidelines were followed. Electronically signed by: Star Morales MD 10/13/2024 12:51 PM EDT
[2024-10-13] MEDS: iohexoL 350 MG/ML 100 ML INFUS..BTL IV (12:03)
--- OUTSIDE RECORDS SUMMARY | 2024-10-13 13:43 | XMS_ITS | Clinical Summary ---
Author Organization [facility] Address [address] [place] [address] Care Team Providers Care Cardiovascular Sonographer Name Role Phone Provider, Unknown Primary Care [...] by mouth. Act ca ergocalciferol (VITAMIN D2,DRISDOL) [address]1999 units Cap Take 50,000 Units by mouth [...] patient's age to complete this topic Insurance [facility] [place] [employer] Care Teams Cardiovascular Sonographer Relationship Specialty Start Date End Date Provider, Unknown 1 DO NOT USE THIS RECORD PCP - General 11/08/15
--- OUTSIDE RECORDS SUMMARY | 2024-10-13 13:43 | XMS_ITS | Encounter Summary ---
Author Organization [facility] Address [address] [place] [address] Phone Care Team Providers Care Incoming Inspector Name Role Phone Rolo Garcia MD Primary Care Provider +1- [phone] Reason for Referral * MRI/CAT Scan - Closed Specialty Diagnoses / Procedures Referred By Apolinar suarez Referred To Contact Procedures CT Abdomen/Pelvis Outside (No Interpretation) System, Provider [place] In, [place] [address] Referral ID Status Reason Start Date Expiration Date Visits Re quested Visits Authorized [id number] Closed 11/18/2018 11/18/2019 1 1 Encounter Details Date Type Department Care Team (Late st Contact Info) Description 11/18/2018 Ancillary Orders [facility],Outside Imaging [address] [place] [address] System, Provider Not In, PhD [address] [address] Social History Tobacco Use Types Packs/Day Years [...] documented as of this encounter Care Teams Incoming Inspector Relationship Specialty Start Date End Date Rolo Garcia MD [address] [address] [email or web address] PCP - General Internal Medicine 12/17/16 documented as of this encounter Additional Source Comments The information contained in this document represents components of the legal health record. It is not the complete legal health record.[facility]
--- OUTSIDE RECORDS SUMMARY | 2024-10-13 13:43 | XMS_ITS | Encounter Summary ---
Author Organization [facility] Address [address] [place] [address] Phone Care Team Providers Care Hair Tinter Name Role Phone Rolo Garcia MD Primary Care Provider +1- [phone] Encounter Details Date Type Department Care Team ([facility] st Contact Info) Description 12/01/2019 Procedure Pass [facility] [address] [place] [address] Social History Tobacco Use Types Packs/Day Years [...] documented as of this encounter Care Teams Hair Tinter Relationship Specialty Start Date End Date Rolo Garcia MD [address] [place] [address] [email or web address] PCP - General Internal Medicine 12/17/16 documented as of this encounter Additional Source Comments The information contained in this document represents components of the legal health record. It is not the complete legal health record.[facility]
--- OUTSIDE RECORDS SUMMARY | 2024-10-13 13:43 | XMS_ITS | Encounter Summary ---
Author Organization [facility] Address [address] [place] [address] Phone Care Team Providers Care Stock Preparation Supervisor Name Role Phone Rolo Garcia MD Primary Care Provider +1- [phone] Reason for Referral * MRI/CAT Scan - Closed Specialty Diagnoses / Procedures Referred By Apolinar suarez Referred To Contact Radiology Diagnoses LLQ abdominal pain Procedures CT Abdomen/Pelvis System, Provider Not In, PhD [address] [address] Referral ID Status Reason Start Date Expiration Date Visits Re quested Visits Authorized [id number] Closed 05/01/2018 05/01/2019 1 1 Encounter Details Date Type Department Care Team (Latest Contact Info) Description 05/01/2018 Transcribe Orders Virtual Department [address] [place] [address] Leandra Tobin PA [address] [place] [address] LLQ abdominal pain (Primary Dx) Social History [...] documented as of this encounter Care Teams Stock Preparation Supervisor Relationship Specialty Start Date End Date Rolo Garcia MD [address] [place] [address] [email or web address] PCP - General Internal Medicine 12/17/16 documented as of this encounter Additional Source Comments The information contained in this document represents components of the legal health record. It is not the complete legal health record.[facility]
--- OUTSIDE RECORDS SUMMARY | 2024-10-13 13:43 | XMS_ITS | Clinical Summary ---
Author Organization [facility] Address [address] [place] [address] Care Team Providers Care Laboratory Engineer Name Role Phone Bessy Lawton Primary Care [...] COVID-19 Vaccine ( - 2023-2 5 season) 2024 Influenza (#1) 2024 Zoster (Shingrix) (1 of [...] age to complete this topic Care Teams Laboratory Engineer Relationship Specialty Start Date End Date Bessy Lawton PCP - General 09/16/22
--- OUTSIDE RECORDS SUMMARY | 2024-10-13 13:43 | XMS_ITS | Clinical Summary ---
Author Organization [facility] Address [address] [place] [address] Phone Care Team Providers Care Starter Mechanic Name Role Phone Rolo Garcia MD Primary Care Provider +1- [phone] Allergies Active Allergy Reactions Criticality Noted Date Comments Mold Extracts 01/23/2018 Medications amitriptyline (ELAVIL) 25 MG tablet Take 25 mg by mouth nightly at bedtime. Active omega 7-rtp-yqt-fish oil 1,000 mg (120 mg-180 mg) Cap [...] 04/09/2019 04/09/2018, 04/10/2005 DEPRESSION SCREENING 12/27/2021 12/27/2020 INFLUENZA VACCINE (#1) 2024 , 12/14/2018, 12/04/2017, Additional history exists COVID-19 VACCINE ( season) 2024 01/06/2021, 04/30/2020, 04/09/2020 LIPID PANEL 12/25/2025 12/25/2020, [...] (12/25/2020 9:05 AM EST) HDL 40 mg/dL [facility] Comment: Interpretation <40 mg/dL: Low HDL cholesterol (major risk factor for CHD) Greater than or equal to 60 mg/dL: High HDL cholesterol ( negative risk factor for CHD) HDL - cholesterol is affected by a number of factors, e.g. smoking, excerise, hormones, sex and age. CHOLESTEROL 192 0 - 240 mg/dL [facility] TRIGLYCERIDES 200(H) 30 - 160 mg/dL [facility] LDL 112 50 - 129 mg/dL [facility] Comment: LDL levels in terms of risk for coronary heart disease: <100 mg/dL: Optimal 100-129 mg/dL: Near or above optimal 130-159 mg/dL: Borderline high 160-189 mg/dL: High >190 mg/dL: Very High CARDIAC RISK RATIO 4.8 3.4 - 5.0 C [facility] Blood 12/25/2020 9:05 AM EST 12/25/2020 9:11 AM EST Rolo Garcia MD LAB BLOOD ORDERABLES Final Result Performing Organization Address [facility]/ZIP Co de Phone Number [address] [address] * Hepatitis C antibody, qualitative (04/30/2018 9:26 AM EDT) HCV Negative Negative [facility] Comment: This is a screening test and should be confirmed with molecular testing Blood 04/30/2018 9:26 AM EDT 04/30/2018 9:33 AM EDT Rolo Garcia MD LAB BLOOD ORDERABLES Final Result Performing Organization Address [facility] Co de Phone Number [address] [address] from Last 3 Months or Most Recently Relevant to Health Maintenance Insurance BLUE CROSS OUT OF STATE PPO BLUE CROSS OUT OF STATE PPO BLUE CROSS OUT OF STATE PPO BLUE CROSS OUT OF STATE PPO BLUE CROSS OUT OF STATE PPO BLUE CROSS OUT OF STATE PPO BLUE CROSS OUT OF STATE PPO BLUE CROSS OUT OF STATE PPO BLUE CROSS OUT OF STATE PPO Care Teams Starter Mechanic Relationship Specialty Start Date End Date Rolo Garcia MD [address] [place] [address] [email or web address] PCP - General Internal Medicine 12/17/16 Additional Source Comments The information contained in this document represents components of the legal health record. It is not the complete legal health record.[facility]
--- OUTSIDE RECORDS SUMMARY | 2024-10-13 13:43 | XMS_ITS | Encounter Summary ---
Author Organization [facility] Address [address] [place] [address] Phone Care Team Providers Care Vest Maker Name Role Phone Rolo Garcia MD Primary Care Provider +1- [phone] Encounter Details Date Type Department Care Team (Latest Contact Info) Description 04/30/2018 Transcribe Orders [facility] [address] [address] Leandra Tobin PA [address] [place] [address] Abdominal pain, left lower quadrant (Primary Dx) [...] REACTIVE PROTEIN 1.0 0.0 - 4.0 mg/L [facility] Blood 04/30/2018 9:26 AM EDT 04/30/2018 9:33 AM EDT us Leandra SEO LAB BLOOD ORDERABLES Final Result Performing Organization Address City/[facility]/ZIP Co de Phone Number [address] [address] * (ABNORMAL) Comprehensive metabolic panel (04/30/2018 9:26 AM EDT) SODIUM 143 133 - 146 mmol/L [facility] POTASSIUM 3.4 3.3 - 5.1 mmol/L [facility] CHLORIDE 103 96 - 108 mmol/L [facility] CO2 27 21 - 35 mmol/L [facility] BUN 7 6 - 19 mg/dL [facility] CREATININE 0.80 0.5 - 1.5 mg/dL [facility] GLUCOSE 113(H) 70 - 99 mg/dL [facility] ALBUMIN 4.8 3.9 - 4.8 g/dL [facility] TOTAL PROTEIN 7.7 6.5 - 8.0 g/dL [facility] CALCIUM 10.0 8.4 - 10.3 mg/dL [facility] ALKALINE PHOSPHATASE 69 39 - 117 U/L [facility] TOTAL BILIRUBIN 0.4 0.0 - 1.2 mg/dL [facility] Comment: Results from certain multiple myeloma patients may show a positive bias in recovery. Not all multiple myeloma patients show the bias and severity of the bias may vary between patients. In very rare cases, gammopathy, in particular type IgM (Waldenstrom's macroglobulinemia), may cause unreliable results. AST 20 0 - 37 U/L [facility] ALT 36 0 - 40 U/L [facility] GLOBULIN 2.9 1 - 4.8 g/dL [facility] EGFR 115 >59 mL/min/1.7 3m2 [facility] Comment:If patient is black, multiply result by 1.159. Estimated glomerular filtration rate calculated using the CKD-EPI equation. ANION GAP 16 10 - 20 mmol/L [facility] Blood 04/30/2018 9:26 AM EDT 04/30/2018 9:33 AM EDT us Leandra SEO LAB BLOOD ORDERABLES Final Result [address] [address] * CBC (04/30/2018 9:26 AM EDT) WBC 5.70 3.40 - 11.20 K/uL [facility] RBC 4.99 4.50 - 5.50 M/uL [facility] HGB 15.5 13.0 - 17.0 g/dL [facility] HCT 44.0 40.0 - 51.0 % [facility] PLT 253 130 - 400 K/uL [facility] MCV 88.2 79.0 - 98.0 fL [facility] MCH 31.1 27.0 - 34.8 pg [facility] MCHC 35.2 31.5 - 36.0 g/dL [facility] RDW 12.1 10.8 - 14.6 % [facility] MPV 9.6 9.4 - 12.4 fl [facility] NRBC 0.00 0.00 /100 WBCs [facility] ABSOLUTE NRBC 0.00 0.00 K/uL [facility] Blood 04/30/2018 9:26 AM EDT 04/30/2018 9:33 AM EDT us Leandra SEO LAB BLOOD ORDERABLES Final Result [address] [address] documented in this encounter Visit Diagnoses Diagnosis Abdominal pain, left lower quadrant- Primary documented in this encounter Additional Health Concerns Infection Onset Date Last Indicated Resolved Time CoV-Risk 08/30/2019 08/31/2019 09/13/2019 1:23 AM EDT Assessment Noted Time PHQ-2 Depression Total Score: 0 01/24/20 18 3:13 PM EST documented as of this encounter Care Teams Vest Maker Relationship Specialty Start Date End Date Rolo Garcia MD [address] [address] [email or web address] PCP - General Internal Medicine 12/17/16 documented as of this encounter Additional Source Comments The information contained in this document represents components of the legal health record. It is not the complete legal health record.[facility]
== END 2024-10-13 11:07 | disposition home or self-care (01) ==
LOC: HO.CT 11:06
PROVIDERS: PCP Nurse Practitioner Family; Visit Provider Nurse Practitioner Family
DX: R50.9 Fever, unspecified (principal); R19.7 Diarrhea, unspecified
CPT/HCPCS: 74177; Q9967

== ENCOUNTER → 2024-10-13 11:08 | Outpatient (BNV) | payer BC, SELFPAY | PROVIDERS: PCP Nurse Practitioner Family; Visit Provider Radiology Diagnostic Radiology | DX: K76.0 Fatty (change of) liver, not elsewhere classified (principal) | CPT/HCPCS: 74177 ==

== ENCOUNTER 2024-11-08 08:33 | Outpatient (REF) | payer BC, SELFPAY ==
--- OUTSIDE RECORDS SUMMARY | 2024-11-08 08:58 | XMS_ITS | Encounter Summary ---
Author Organization [facility] Address [address] [place] [address] Phone Care Team Providers Care Medical Secretary Receptionist Name Role Phone Rolo Garcia MD Primary Care Provider +1- [phone] Reason for Referral * MRI/CAT Scan - Closed Specialty Diagnoses / Procedures Referred By Apolinar suarez Referred To Contact Radiology Diagnoses LLQ abdominal pain Procedures CT Abdomen/Pelvis System, Provider Not In, PhD [address] [address] Referral ID Status Reason Start Date Expiration Date Visits Re quested Visits Authorized [id number] Closed 05/01/2018 05/01/2019 1 1 Encounter Details Date Type Department Care Team (Latest Contact Info) Description 05/01/2018 Transcribe Orders Virtual Department [address] [place] [address] Leandra Tobin PA [address] [place] [address] LLQ abdominal pain (Primary Dx) Social History [...] documented as of this encounter Care Teams Medical Secretary Receptionist Relationship Specialty Start Date End Date Rolo Garcia MD [address] [place] [address] [email or web address] PCP - General Internal Medicine 12/17/16 documented as of this encounter Additional Source Comments The information contained in this document represents components of the legal health record. It is not the complete legal health record.[facility]
--- OUTSIDE RECORDS SUMMARY | 2024-11-08 08:58 | XMS_ITS | Clinical Summary ---
Author Organization [facility] Address [address] [place] [address] Care Team Providers Care Deskidding Machine Operator Name Role Phone Bessy Lawton Primary Care [...] age to complete this topic Care Teams Deskidding Machine Operator Relationship Specialty Start Date End Date Bessy Lawton PCP - General 09/16/22
--- OUTSIDE RECORDS SUMMARY | 2024-11-08 08:58 | XMS_ITS | Encounter Summary ---
Author Organization [facility] Address [address] [place] [address] Phone Care Team Providers Care International Accounting Manager Name Role Phone Rolo Garcia MD Primary Care Provider +1- [phone] Encounter Details Date Type Department Care Team ([facility] st Contact Info) Description 12/01/2019 Procedure Pass [facility] [address] [place] [address] Social History Tobacco Use Types Packs/Day Years [...] documented as of this encounter Care Teams International Accounting Manager Relationship Specialty Start Date End Date Rolo Garcia MD [address] [place] [address] [email or web address] PCP - General Internal Medicine 12/17/16 documented as of this encounter Additional Source Comments The information contained in this document represents components of the legal health record. It is not the complete legal health record.[facility]
--- OUTSIDE RECORDS SUMMARY | 2024-11-08 08:58 | XMS_ITS | Clinical Summary ---
Author Organization [facility] Address [address] [place] [address] Phone Care Team Providers Care Instrument Assembler Name Role Phone Rolo Garcia MD Primary Care Provider +1- [phone] Allergies Active Allergy Reactions Criticality Noted Date Comments Mold Extracts 01/23/2018 Medications amitriptyline (ELAVIL) 25 MG tablet Take 25 mg by mouth nightly at bedtime. Active omega 5-mpn-ekj-fish oil 1,000 mg (120 mg-180 mg) Cap [...] (12/25/2020 9:05 AM EST) HDL 40 mg/dL [facility] Comment: Interpretation <40 mg/dL: Low HDL cholesterol (major risk factor for CHD) Greater than or equal to 60 mg/dL: High HDL cholesterol ( negative risk factor for CHD) HDL - cholesterol is affected by a number of factors, e.g. smoking, excerise, hormones, sex and age. CHOLESTEROL 192 0 - 240 mg/dL [facility] TRIGLYCERIDES 200(H) 30 - 160 mg/dL [facility] LDL 112 50 - 129 mg/dL [facility] Comment: LDL levels in terms of risk for coronary heart disease: <100 mg/dL: Optimal 100-129 mg/dL: Near or above optimal 130-159 mg/dL: Borderline high 160-189 mg/dL: High >190 mg/dL: Very High CARDIAC RISK RATIO 4.8 3.4 - 5.0 C [facility] Blood 12/25/2020 9:05 AM EST 12/25/2020 9:11 AM EST Rolo Garcia MD LAB BLOOD ORDERABLES Final Result Performing Organization Address [facility]/ZIP Co de Phone Number [address] [address] * Hepatitis C antibody, qualitative (04/30/2018 9:26 AM EDT) HCV Negative Negative [facility] Comment: This is a screening test and should be confirmed with molecular testing Blood 04/30/2018 9:26 AM EDT 04/30/2018 9:33 AM EDT Rolo Garcia MD LAB BLOOD ORDERABLES Final Result Performing Organization Address [facility] Co de Phone Number [address] [address] from Last 3 Months or Most Recently [...] CROSS OUT OF STATE PPO Care Teams Instrument Assembler Relationship Specialty Start Date End Date Rolo Garcia MD [address] [place] [address] [email or web address] PCP - General Internal Medicine 12/17/16 Additional Source Comments The information contained in this document represents components of the legal health record. It is not the complete legal health record.[facility]
--- OUTSIDE RECORDS SUMMARY | 2024-11-08 08:58 | XMS_ITS | Clinical Summary ---
Author Organization [facility] Address [address] [place] [address] Care Team Providers Care Software Design Manager Name Role Phone Provider, Unknown Primary Care [...] by mouth. Act ca ergocalciferol (VITAMIN D2,DRISDOL) 53557 units Cap Take 50,000 Units by mouth [...] (1 - 3-dose SCD M series) 2008 Influenza Vaccine 09/10/2024 COVID-19 Vaccine (1 - 2023-2 5 season) 2024 Pneumococcal Vaccine: Pediat marquita (0-5 Years) and At-Risk Patients (6 to 49 Years) Aged Out No longer eligible b ased on patient's age to complete this topic Insurance [facility] [employer] Care Teams Software Design Manager Relationship Specialty Start Date End Date Provider, Unknown 1 DO NOT USE THIS RECORD PCP - General 11/08/15
--- OUTSIDE RECORDS SUMMARY | 2024-11-08 08:58 | XMS_ITS | Encounter Summary ---
Author Organization [facility] Address [address] [place] [address] Phone Care Team Providers Care Fire Behavior Analyst Name Role Phone Rolo Garcia MD Primary Care Provider +1- [phone] Reason for Referral * MRI/CAT Scan - Closed Specialty Diagnoses / Procedures Referred By Apolinar suarez Referred To Contact Procedures CT Abdomen/Pelvis Outside (No Interpretation) System, Provider [place] In, [place] [address] Referral ID Status Reason Start Date Expiration Date Visits Re quested Visits Authorized [id number] Closed 11/18/2018 11/18/2019 1 1 Encounter Details Date Type Department Care Team (Late st Contact Info) Description 11/18/2018 Ancillary Orders [facility],Outside Imaging [address] [place] [address] System, Provider Not In, PhD [address] [address] Social History Tobacco Use Types Packs/Day Years [...] documented as of this encounter Care Teams Fire Behavior Analyst Relationship Specialty Start Date End Date Rolo Garcia MD [address] [address] [email or web address] PCP - General Internal Medicine 12/17/16 documented as of this encounter Additional Source Comments The information contained in this document represents components of the legal health record. It is not the complete legal health record.[facility]
--- OUTSIDE RECORDS SUMMARY | 2024-11-08 08:58 | XMS_ITS | Encounter Summary ---
Author Organization [facility] Address [address] [place] [address] Phone Care Team Providers Care Audit Analyst Name Role Phone Rolo Garcia MD Primary Care Provider +1- [phone] Encounter Details Date Type Department Care Team (Latest Contact Info) Description 04/30/2018 Transcribe Orders [facility] [address] [address] Leandra Tobin PA 10 [place] [address] Abdominal pain, left lower quadrant (Primary Dx) [...] REACTIVE PROTEIN 1.0 0.0 - 4.0 mg/L [facility] Blood 04/30/2018 9:26 AM EDT 04/30/2018 9:33 AM EDT us Leandra SEO LAB BLOOD ORDERABLES Final Result Performing Organization Address City/[facility]/ZIP Co de Phone Number [address] [address] * (ABNORMAL) Comprehensive metabolic panel (04/30/2018 9:26 AM EDT) SODIUM 143 133 - 146 mmol/L [facility] POTASSIUM 3.4 3.3 - 5.1 mmol/L [facility] CHLORIDE 103 96 - 108 mmol/L [facility] CO2 27 21 - 35 mmol/L [facility] BUN 7 6 - 19 mg/dL [facility] CREATININE 0.80 0.5 - 1.5 mg/dL [facility] GLUCOSE 113(H) 70 - 99 mg/dL [facility] ALBUMIN 4.8 3.9 - 4.8 g/dL [facility] TOTAL PROTEIN 7.7 6.5 - 8.0 g/dL [facility] CALCIUM 10.0 8.4 - 10.3 mg/dL [facility] ALKALINE PHOSPHATASE 69 39 - 117 U/L [facility] TOTAL BILIRUBIN 0.4 0.0 - 1.2 mg/dL [facility] Comment: Results from certain multiple myeloma patients may show a positive bias in recovery. Not all multiple myeloma patients show the bias and severity of the bias may vary between patients. In very rare cases, gammopathy, in particular type IgM (Waldenstrom's macroglobulinemia), may cause unreliable results. AST 20 0 - 37 U/L [facility] ALT 36 0 - 40 U/L [facility] GLOBULIN 2.9 1 - 4.8 g/dL [facility] EGFR 115 >59 mL/min/1.7 3m2 [facility] Comment:If patient is black, multiply result by 1.159. Estimated glomerular filtration rate calculated using the CKD-EPI equation. ANION GAP 16 10 - 20 mmol/L [facility] Blood 04/30/2018 9:26 AM EDT 04/30/2018 9:33 AM EDT us Leandra SEO LAB BLOOD ORDERABLES Final Result [address] [address] * CBC (04/30/2018 9:26 AM EDT) WBC 5.70 3.40 - 11.20 K/uL [facility] RBC 4.99 4.50 - 5.50 M/uL [facility] HGB 15.5 13.0 - 17.0 g/dL [facility] HCT 44.0 40.0 - 51.0 % [facility] PLT 253 130 - 400 K/uL [facility] MCV 88.2 79.0 - 98.0 fL [facility] MCH 31.1 27.0 - 34.8 pg [facility] MCHC 35.2 31.5 - 36.0 g/dL [facility] RDW 12.1 10.8 - 14.6 % [facility] MPV 9.6 9.4 - 12.4 fl [facility] NRBC 0.00 0.00 /100 WBCs [facility] ABSOLUTE NRBC 0.00 0.00 K/uL [facility] Blood 04/30/2018 9:26 AM EDT 04/30/2018 9:33 AM EDT us Leandra SEO LAB BLOOD ORDERABLES Final Result [address] [address] documented in this encounter Visit Diagnoses Diagnosis Abdominal pain, left lower quadrant- Primary documented in this encounter Additional Health Concerns Infection Onset Date Last Indicated Resolved Time CoV-Risk 08/30/2019 08/31/2019 09/13/2019 1:23 AM EDT Assessment Noted Time PHQ-2 Depression Total Score: 0 01/24/20 18 3:13 PM EST documented as of this encounter Care Teams Audit Analyst Relationship Specialty Start Date End Date Rolo Garcia MD [address] [address] [email or web address] PCP - General Internal Medicine 12/17/16 documented as of this encounter Additional Source Comments The information contained in this document represents components of the legal health record. It is not the complete legal health record.[facility]
[2024-11-08 09:57] LABS: MANUAL DIFF FLAG NO
[2024-11-08 10:08] LABS: Hematocrit 43.3 % (42.0-52.0); Hemoglobin 15.4 g/dl (14.0-18.0); Imm Gran Abs Auto 0.02 X10*3/uL (0.00-0.03); Imm Gran Pct Auto 0.2 % (0.0-0.4); Lymphocytes Absolute Auto 2.3 X10*3/uL (1.2-4.9); Mean Corpuscular HGB Conc 35.6 g/dl (31.0-36.0); Mean Corpuscular Hemoglobin 31.7 pg (27.0-33.0); Mean Corpuscular Volume 89.1 fL (80.0-98.0); NRBC Abs Auto 0.000 X10*3/uL (0.0-0.012); NRBC Pct Auto 0.0 /100WBC (0.0-0.2); Platelet Count 235 X10*3/uL (160-400); Red Blood Count 4.86 X10*6/uL (4.60-5.80); White Blood Count 9.0 X10*3/uL (4.8-10.8)
[2024-11-08 10:48] LABS: Alanine Aminotransferase 53 U/L (0-40); Albumin Level 5.0 g/dL (3.5-5.0); Alkaline Phosphatase 71 U/L (39-117); Anion Gap 13 (12-20); Aspartate Amino Transferase 27 U/L (5-37); Blood Urea Nitrogen 14 mg/dL (9-16); Calcium 10.1 mg/dL (8.4-10.2); Carbon Dioxide 29 mmol/L (22-29); Chloride 104 mmol/L (96-108); Estimated Glomerular Filt Rate > 60; Potassium 3.5 mmol/L (3.3-5.1); Sodium 142 mmol/L (135-145); Total Protein 7.9 g/dL (6.5-8.0)
[2024-11-10 20:28] LABS: Immunoglobulin A 327 mg/dL (47-310)
== END 2024-11-08 08:34 | disposition home or self-care (01) ==
LOC: HO.HMGCLDS 08:33
PROVIDERS: PCP Nurse Practitioner Family; Visit Provider Nurse Practitioner Family
DX: R19.7 Diarrhea, unspecified (principal); R14.0 Abdominal distension (gaseous)
CPT/HCPCS: 36415; 80053; 82784; 84443; 85025; 85652; 86140; 86301; 86364; 86381

== ENCOUNTER 2024-12-15 13:21 | Outpatient (AMB) | payer BC, SELFPAY ==
--- NOTE | 2024-12-15 13:22 | A.OFFVIS_ITS ---
Vital Signs 12/15/24 13:23 Height 5 ft 11 in Weight 254 lb BMI 35.4 BP 120/82 Blood Pressure Location Rt brachial Position Sitting Pulse 105 H Pulse Source Pulse Oximeter Pulse Oximetry (%) 98 Oxygen Delivery Method Room Air Intake Visit Reasons: 6 mo follow up Intake Note: Patient presents month follow up for GREER/Insomnia. Landscape Specialist Required: No Accompanied by: Self / Same As Patient Allergies mold Allergy (Intermediate, Verified 12/15/24 13:23) triggers asthma Medication List - Last Reconciled 12/15/24 by ERMA Jones albuterol sulfate 90 mcg/actuation 2 puffs inhalation Q6H PRN amitriptyline 25 mg PO BEDTIME cholecalciferol (vitamin D3) 1,250 mcg PO QWEEK 12 days clonazepam 0.5 mg PO DAILY PRN fenofibrate 54 mg PO DAILY fluticasone propion-salmeterol 250-50 mcg/dose (Wixela Inhub) 1 ea inhalation BID hydrochlorothiazide 12.5 mg PO DAILY ibuprofen 400 mg PO Q8H rosuvastatin 5 mg PO DAILY temazepam 30 mg PO BEDTIME PRN 30 days HPI Comments Details: 44-yr-old male presents for 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 He has been having newer GI symptoms: sensation of something being stuck in his lower espophasus, increased acid reflux, hiccups, and burping. His PCP ordered abdominal ultrasound and CT, which showed hepatic state doses and right lower pulmonary nodule, for which he is scheduled to have a follow-up chest CT. His PCP has referred to GI and for a FL barium swallow study. He uses a Tums as needed. He is trying to sleep with the head elevated. He has not yet tried a PPI or H2 antagonist. He is not frequently using Ibuprofen. He has not retried indomethacin. He reports that his family has been relieved to find out that his 's cancer is currently undetectable, the will need surveillance monitoring. Pt reports reports resolution of both headaches: * Brief right faith headache * episodes of very brief (seconds) severe pain which takes his breath away- starting in right shoulder and moving up through top of right ear. But he had a day with a similar brief sharp stabbing pain on the top of the head, lasting one day and then resolving on its own. He previously did try Indomethacin once- unsure of effect, but has not needed to retry, as he has not had any further attacks since. He is still f/b Dr Keon Arguelles, neurology- who he did have f/u with after his last appt here. He has been compliant with the vitamin-D supplement He continues to have difficulty transitioning from sleeping during the day to sleeping at night. Typically is able to sleep ok during the day. Does use black out curtains. States he is more of a night person. He uses temazepam for these transitions- typically a few times a month. He tries to use his mouth guard consistently. 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 Works a [employer] Schedule- 4 12 hr night shifts (4:30am-4:30pm) days f/b 3 days off f/b 3 12 hr day shifts (4:30am-4:30pm) f/b 1 day off f/b 3 12 hr night shifts f/b 3 days off f/b 4 12 hr day shift f/b 7 days off then the cycle repeats 09/17/2022, HST: AHI 0.7/hr w/ O2 sanket 89% w/ SpO2 < 90% x's 0.1 min, SpO2 < 88% x's 0 min, and average SpO2 96%, snoring 48% of sleep time. [facility] Medical History Migraine without aura Peroneal tendinitis, right leg Elevated C-reactive protein (CRP) Peroneal tendonitis of right lower leg Occipital neuralgia Fatty liver Kidney, malrotation Surgical History No pertinent past surgical history Family History Sister Mental health disorder Father Brain cancer Mother Diabetes Social History Housing: House Alcohol intake: current Alcohol intake frequency: holidays/special occasions only Patient Tobacco Use Status: Never used Tobacco e-Cigarette/Vaping Use: Never Used Second Hand Smoke Exposure: No service: No Current occupational status: employed Current occupation: [employer] Current occupational exposures/hazards: No Cognitive needs: No Hearing needs: No Vision needs: No Physical Exam Vital Signs: Last Vital Signs Pulse 105 H 12/15/24 13:23 BP 120/82 12/15/24 13:23 Pulse Ox 98 12/15/24 13:23 Oxygen Delivery Method Room Air 12/15/24 13:23 BMI result Body Mass Index 35.4 Const General: no acute distress Orientation/consciousness: patient oriented x3 Resp Effort & Inspection: normal respiratory effort and able to speak in complete sentences Neuro General: patient oriented x3, gait normal and moves all extremities Cranial nerves: Yes CN's II-XII intact bilaterally Cognition (Neuro): normal cognition Gait exam (Neuro): Normal gait present Motor exam (neuro): 5/5 motor strength present throughout Psych Mental Status: mental status grossly normal Speech and movement: Clear speech present Attitude: cooperative Results Reviewed Results Reviewed: 01/04/24, MR/MR head/brain wo/w con IMPRESSION: 1. No acute intracranial abnormalities. No abnormal intracranial enhancement. 2. Minimal nonspecific white matter changes. 3. Moderate sinonasal mucosal disease. Assessment & Plan Assessment & Plan (1) Shift work sleep disorder: Code(s): G47.26 - Circadian rhythm sleep disorder, shift work type Category: Medical (2) Insomnia: Code(s): G47.00 - Insomnia, unspecified Category: Medical Qualifiers: Insomnia type: unspecified Qualified Code(s): G47.00 - Insomnia, unspecified (3) Unilateral headache: Comment: Improved Code(s): R51.9 - Headache, unspecified Category: Medical (4) Vitamin D deficiency: Code(s): E55.9 - Vitamin D deficiency, unspecified Category: Medical Plan Continue temazepam 30 mg as needed for insomnia secondary to shifting shift work. Continue vitamin-D supplement Home sleep study- no evidence for sleep apnea, though there is snoring. Consistently use mouth guard during sleep. Information previously shared on sleep hygiene/education in shifting shift work sleep disorders. To try to minimize GI symptoms during sleep, try to avoid heavy meals before bed, excessive caffeine use, carbonated beverages. Continue sleeping with head elevated. Try taking Tums with water or may try OTC Pepcid complete 2 tabs chewed as needed. For right sided stabbing headache w/o autonomic s/s: CRP, TSH within normal limits Recheck crp and fasting labs for common etiologies. Continue vit d supplement. Brain MRI w/wo- Minimal nonspecific white matter changes. No findings to account for pt's headache s/s. Hold Indomethacin 25mg po TID prn order due to current GI symptoms Follow-up with Dr. Rodrigez as scheduled Will follow-up upon review of above and patient to follow-up in clinic in 6 months or sooner prn. Orders: Orders Vitamin D 25-OH (D2 and D3) Today E55.9 - Vitamin D deficiency, unspecified Coding Level of Care Code Est Pt Level 4 (21974) Diagnoses Shift work sleep disorder G47.26 Insomnia, unspecified type G47.00 Insomnia type: unspecified Unilateral headache R51.9 Vitamin D deficiency E55.9
[2024-12-15 13:23] VITALS: BP 120/82; PULSE 105; O2SAT 98; BMI 35.4
--- OUTSIDE RECORDS SUMMARY | 2024-12-15 16:14 | XMS_ITS | Clinical Summary ---
Author Organization [facility] Address [address] [place] [address] Care Team Providers Care Straightener And Aligner Name Role Phone Bessy Lawton Primary Care [...] 3-dose series) 2000 COVID-19 Vaccine ( - 2024-2 6 season) 2024 Influenza (#1) 2024 Zoster (Shingrix) [...] age to complete this topic Care Teams Straightener And Aligner Relationship Specialty Start Date End Date Bessy Lawton PCP - General 09/16/22
--- OUTSIDE RECORDS SUMMARY | 2024-12-15 16:14 | XMS_ITS | Clinical Summary ---
Author Organization [facility] Address [address] [place] [address] Care Team Providers Care Commercial Floor Covering Installer Name Role Phone Provider, Unknown Primary Care [...] by mouth. Act ca ergocalciferol (VITAMIN D2,DRISDOL) 31946 units Cap Take 50,000 Units by mouth [...] - 19+ 3-dose series) 2000 Influenza Vaccine 09/10/2024 COVID-19 Vaccine (1 - 2023-2 5 season) 2024 HPV Vaccines (No Doses Required) Completed Pneumococcal Vaccine: Pediat marquita (0-5 Years) and At-Risk Patients (6 to 49 Years) Aged Out No longer eligible b ased on patient's age to complete this topic Insurance [facility] [employer] Care Teams Commercial Floor Covering Installer Relationship Specialty Start Date End Date Provider, Unknown 1 DO NOT USE THIS RECORD PCP - General 11/08/15
--- OUTSIDE RECORDS SUMMARY | 2024-12-15 16:14 | XMS_ITS | Encounter Summary ---
Author Organization [facility] Address [address] [place] [address] Phone Care Team Providers Care Seismology Teacher Name Role Phone Rolo Garcia MD Primary Care Provider +1- [phone] Reason for Referral * MRI/CAT Scan - Closed Specialty Diagnoses / Procedures Referred By Apolinar suarez Referred To Contact Radiology Diagnoses LLQ abdominal pain Procedures CT Abdomen/Pelvis System, Provider Not In, PhD [address] [address] Referral ID Status Reason Start Date Expiration Date Visits Re quested Visits Authorized [id number] Closed 05/01/2018 05/01/2019 1 1 Encounter Details Date Type Department Care Team (Latest Contact Info) Description 05/01/2018 Transcribe Orders Virtual Department [address] [place] [address] Leandra Tobin PA [address] [place] [phone] LLQ abdominal pain (Primary Dx) Social History [...] documented as of this encounter Care Teams Seismology Teacher Relationship Specialty Start Date End Date Rolo Garcia MD [address] [place] [address] [email or web address] PCP - General Internal Medicine 12/17/16 documented as of this encounter Additional Source Comments The information contained in this document represents components of the legal health record. It is not the complete legal health record.[facility]
--- OUTSIDE RECORDS SUMMARY | 2024-12-15 16:14 | XMS_ITS | Encounter Summary ---
Author Organization [facility] Address [address] [place] [address] Phone Care Team Providers Care Bottom Liquor Attendant Name Role Phone Rolo Garcia MD Primary Care Provider +1- [phone] Reason for Referral * MRI/CAT Scan - Closed Specialty Diagnoses / Procedures Referred By Apolinar suarez Referred To Contact Procedures CT Abdomen/Pelvis Outside (No Interpretation) System, Provider Not In, [place] [address] Referral ID Status Reason Start Date Expiration Date Visits Re quested Visits Authorized [id number] Closed 11/18/2018 11/18/2019 1 1 Encounter Details Date Type Department Care Team (Late st Contact Info) Description 11/18/2018 Ancillary Orders [facility],Outside Imaging [address] [place] [address] System, Provider Not In, PhD [address] [address] Social History Tobacco Use Types Packs/Day Years [...] documented as of this encounter Care Teams Bottom Liquor Attendant Relationship Specialty Start Date End Date Rolo Garcia MD [address] [address] [email or web address] PCP - General Internal Medicine 12/17/16 documented as of this encounter Additional Source Comments The information contained in this document represents components of the legal health record. It is not the complete legal health record.[facility]
--- OUTSIDE RECORDS SUMMARY | 2024-12-15 16:14 | XMS_ITS | Encounter Summary ---
Author Organization [facility] Address [address] [place] [address] Phone Care Team Providers Care Regional Loss Prevention Manager Name Role Phone Rolo Garcia MD Primary Care Provider +1- [phone] Encounter Details Date Type Department Care Team ([facility] st Contact Info) Description 12/01/2019 Procedure Pass [facility] [address] [place] [address] Social History Tobacco Use Types Packs/Day Years [...] as of this encounter Care Teams Regional Loss Prevention Manager Relationship Specialty Start Date End Date Rolo Garcia MD [address] [place] [phone] [email or web address] PCP - General Internal Medicine 12/17/16 documented as of this encounter Additional Source Comments The information contained in this document represents components of the legal health record. It is not the complete legal health record.[facility]
--- OUTSIDE RECORDS SUMMARY | 2024-12-15 16:14 | XMS_ITS | Encounter Summary ---
Author Organization [facility] Address [address] [place] [address] Phone Care Team Providers Care Traffic Engineering Technician Name Role Phone Rolo Garcia MD Primary Care Provider +1- [phone] Encounter Details Date Type Department Care Team (Latest Contact Info) Description 04/30/2018 Transcribe Orders [facility] [address] [address] Leandra Tobin PA 10 [place] [address] Abdominal pain, left lower quadrant (Primary Dx) [...] REACTIVE PROTEIN 1.0 0.0 - 4.0 mg/L [facility] Blood 04/30/2018 9:26 AM EDT 04/30/2018 9:33 AM EDT us Leandra SEO LAB BLOOD BKR ORDERABLES Fi nal Result [facility] [address] [place] [address] * (ABNORMAL) Comprehensive metabolic panel (04/30/2018 9:26 AM EDT) SODIUM 143 133 - 146 mmol/L [facility] POTASSIUM 3.4 3.3 - 5.1 mmol/L [facility] CHLORIDE 103 96 - 108 mmol/L [facility] CO2 27 21 - 35 mmol/L [facility] BUN 7 6 - 19 mg/dL [facility] CREATININE 0.80 0.5 - 1.5 mg/dL [facility] GLUCOSE 113(H) 70 - 99 mg/dL [facility] ALBUMIN 4.8 3.9 - 4.8 g/dL [facility] TOTAL PROTEIN 7.7 6.5 - 8.0 g/dL [facility] CALCIUM 10.0 8.4 - 10.3 mg/dL [facility] ALKALINE PHOSPHATASE 69 39 - 117 U/L [facility] TOTAL BILIRUBIN 0.4 0.0 - 1.2 mg/dL [facility] Comment: Results from certain multiple myeloma patients may show a positive bias in recovery. Not all multiple myeloma patients show the bias and severity of the bias may vary between patients. In very rare cases, gammopathy, in particular type IgM (Waldenstrom's macroglobulinemia), may cause unreliable results. AST 20 0 - 37 U/L [facility] ALT 36 0 - 40 U/L [facility] GLOBULIN 2.9 1 - 4.8 g/dL [facility] EGFR 115 >59 mL/min/1.7 3m2 [facility] Comment:If patient is black, multiply result by 1.159. Estimated glomerular filtration rate calculated using the CKD-EPI equation. ANION GAP 16 10 - 20 mmol/L [facility] Blood 04/30/2018 9:26 AM EDT 04/30/2018 9:33 AM EDT us Leandra SEO LAB BLOOD BKR ORDERABLES Fi nal Result [address] [address] * CBC (04/30/2018 9:26 AM EDT) WBC 5.70 3.40 - 11.20 K/uL [facility] RBC 4.99 4.50 - 5.50 M/uL [facility] HGB 15.5 13.0 - 17.0 g/dL [facility] HCT 44.0 40.0 - 51.0 % [facility] PLT 253 130 - 400 K/uL [facility] MCV 88.2 79.0 - 98.0 fL [facility] MCH 31.1 27.0 - 34.8 pg [facility] MCHC 35.2 31.5 - 36.0 g/dL [facility] RDW 12.1 10.8 - 14.6 % [facility] MPV 9.6 9.4 - 12.4 fl [facility] NRBC 0.00 0.00 /100 WBCs [facility] ABSOLUTE NRBC 0.00 0.00 K/uL [facility] Blood 04/30/2018 9:26 AM EDT 04/30/2018 9:33 AM EDT us Leandra SEO LAB BLOOD BKR ORDERABLES Fi nal Result [address] [address] documented in this encounter Visit Diagnoses Diagnosis Abdominal pain, left lower quadrant- Primary documented in this encounter Additional Health Concerns Infection Onset Date Last Indicated Resolved Time CoV-Risk 08/30/2019 08/31/2019 09/13/2019 1:23 AM EDT Assessment Noted Time PHQ-2 Depression Total Score: 0 01/24/20 18 3:13 PM EST documented as of this encounter Care Teams Traffic Engineering Technician Relationship Specialty Start Date End Date Rolo Garcia MD [address] [address] [email or web address] PCP - General Internal Medicine 12/17/16 documented as of this encounter Additional Source Comments The information contained in this document represents components of the legal health record. It is not the complete legal health record.[facility]
--- OUTSIDE RECORDS SUMMARY | 2024-12-15 16:14 | XMS_ITS | Clinical Summary ---
Author Organization [facility] Address [address] [place] [address] Phone Care Team Providers Care Study Assistant Name Role Phone Rolo Garcia MD Primary Care Provider +1- [phone] Allergies Active Allergy Reactions Criticality Noted Date Comments Mold Extracts 01/23/2018 Medications amitriptyline (ELAVIL) 25 MG tablet Take 25 mg by mouth nightly at bedtime. Active omega 6-yko-yds-fish oil 1,000 mg (120 mg-180 mg) Cap [...] (12/25/2020 9:05 AM EST) HDL 40 mg/dL [facility] Comment: Interpretation <40 mg/dL: Low HDL cholesterol (major risk factor for CHD) Greater than or equal to 60 mg/dL: High HDL cholesterol ( negative risk factor for CHD) HDL - cholesterol is affected by a number of factors, e.g. smoking, excerise, hormones, sex and age. CHOLESTEROL 192 0 - 240 mg/dL [facility] TRIGLYCERIDES 200(H) 30 - 160 mg/dL [facility] LDL 112 50 - 129 mg/dL [facility] Comment: LDL levels in terms of risk for coronary heart disease: <100 mg/dL: Optimal 100-129 mg/dL: Near or above optimal 130-159 mg/dL: Borderline high 160-189 mg/dL: High >190 mg/dL: Very High CARDIAC RISK RATIO 4.8 3.4 - 5.0 C [facility] Blood 12/25/2020 9:05 AM EST 12/25/2020 9:11 AM EST Rolo Garcia MD LAB BLOOD BKR ORDERABLES F inal Result Performing Organization Address [facility]/ZIP Co de Phone Number [address] [address] * Hepatitis C antibody, qualitative (04/30/2018 9:26 AM EDT) HCV Negative Negative [facility] Comment: This is a screening test and should be confirmed with molecular testing Blood 04/30/2018 9:26 AM EDT 04/30/2018 9:33 AM EDT Rolo Garcia MD LAB BLOOD BKR ORDERABLES F inal Result Performing Organization Address City/[facility]/ZIP Co de Phone Number [address] [address] from Last 3 Months or Most Recently [...] CROSS OUT OF STATE PPO Care Teams Study Assistant Relationship Specialty Start Date End Date Rolo Garcia MD [address] [address] [email or web address] PCP - General Internal Medicine 12/17/16 Additional Source Comments The information contained in this document represents components of the legal health record. It is not the complete legal health record.[facility]
== END 2024-12-15 14:00 | disposition home or self-care (01) ==
LOC: HO.HSMS 13:22
PROVIDERS: PCP Nurse Practitioner Family; Visit Provider Nurse Practitioner Family
DX: G47.26 Circadian rhythm sleep disorder, shift work type (principal); G47.00 Insomnia, unspecified; R51.9 Headache, unspecified; E55.9 Vitamin D deficiency, unspecified
CPT/HCPCS: 99214

== ENCOUNTER 2025-01-20 14:45 | Outpatient (REF) | payer BC, SELFPAY ==
[2025-01-20 18:28] LABS: Alanine Aminotransferase 52 U/L (0-40); Albumin Level 5.2 g/dL (3.5-5.0); Alkaline Phosphatase 59 U/L (39-117); Anion Gap 13 (12-20); Aspartate Amino Transferase 42 U/L (5-37); Blood Urea Nitrogen 12 mg/dL (9-16); Calcium 9.9 mg/dL (8.4-10.2); Carbon Dioxide 28 mmol/L (22-29); Chloride 103 mmol/L (96-108); Cholesterol 186 mg/dL (<200); Estimated Glomerular Filt Rate > 60; HDL Cholesterol 43 mg/dL (>40); Potassium 4.0 mmol/L (3.3-5.1); Sodium 140 mmol/L (135-145); Total Protein 7.8 g/dL (6.5-8.0); Triglycerides 266 mg/dL (<150)
--- OUTSIDE RECORDS SUMMARY | 2025-01-20 22:17 | XMS_ITS | Encounter Summary ---
Author Organization [facility] Address [address] [place] [address] Phone Care Team Providers Care Testing Coordinator Name Role Phone Rolo Garcia MD Primary Care Provider +1- [phone] Encounter Details Date Type Department Care Team ([facility] st Contact Info) Description 12/01/2019 Procedure Pass [facility] Echo [facility] [address] [place] [address] Social History Tobacco Use Types Packs/Day Years [...] documented as of this encounter Care Teams Testing Coordinator Relationship Specialty Start Date End Date Rolo Garcia MD [address] [place] [address] [email or web address] PCP - General Internal Medicine 12/17/16 documented as of this encounter Additional Source Comments The information contained in this document represents components of the legal health record. It is not the complete legal health record.[facility]
--- OUTSIDE RECORDS SUMMARY | 2025-01-20 22:17 | XMS_ITS | Clinical Summary ---
Author Organization [facility] Address [address] [place] [address] Care Team Providers Care Snapper On Name Role Phone Bessy Lawton Primary Care [...] age to complete this topic Care Teams Snapper On Relationship Specialty Start Date End Date Bessy Lawton PCP - General 09/16/22
--- OUTSIDE RECORDS SUMMARY | 2025-01-20 22:17 | XMS_ITS | Clinical Summary ---
Author Organization Formerly [facility] Address [address] [place] [address] Care Team Providers Care Makeup Sales Advisor Name Role Phone Provider, Unknown Primary Care [...] by mouth. Act ca ergocalciferol (VITAMIN D2,DRISDOL) 61043 units Cap Take 50,000 Units by mouth [...] patient's age to complete this topic Insurance [facility] [employer] Care Teams Makeup Sales Advisor Relationship Specialty Start Date End Date Provider, Unknown 1 DO NOT USE THIS RECORD PCP - General 11/08/15
--- OUTSIDE RECORDS SUMMARY | 2025-01-20 22:17 | XMS_ITS | Encounter Summary ---
Author Organization [facility] Address [address] [place] [address] Phone Care Team Providers Care Supply Chain Intern Name Role Phone Rolo Garcia MD Primary Care Provider +1- [phone] Reason for Referral * MRI/CAT Scan - Closed Specialty Diagnoses / Procedures Referred By Apolinar suarez Referred To Contact Procedures CT Abdomen/Pelvis Outside (No Interpretation) System, Provider Not In, [place] [address] Referral ID Status Reason Start Date Expiration Date Visits Re quested Visits Authorized [id number] Closed 11/18/2018 11/18/2019 1 1 Encounter Details Date Type Department Care Team (Late st Contact Info) Description 11/18/2018 Ancillary Orders [facility],Outside Imaging [address] [place] [address] System, Provider Not In, PhD [address] [address] Social History Tobacco Use Types Packs/Day Years [...] documented as of this encounter Care Teams Supply Chain Intern Relationship Specialty Start Date End Date Rolo Garcia MD [address] [address] [email or web address] PCP - General Internal Medicine 12/17/16 documented as of this encounter Additional Source Comments The information contained in this document represents components of the legal health record. It is not the complete legal health record.[facility]
--- OUTSIDE RECORDS SUMMARY | 2025-01-20 22:17 | XMS_ITS | Encounter Summary ---
Author Organization [facility] Address [address] [place] [address] Phone Care Team Providers Care Forest Examiner Name Role Phone Rolo Garcia MD Primary Care Provider +1- [phone] Encounter Details Date Type Department Care Team (Latest Contact Info) Description 04/30/2018 Transcribe Orders [facility] [address] [address] Leandra Tobin PA 10 [place] [address] Abdominal pain, left lower quadrant (Primary Dx) [...] REACTIVE PROTEIN 1.0 0.0 - 4.0 mg/L [facility] Blood 04/30/2018 9:26 AM EDT 04/30/2018 9:33 AM EDT us Leandra SEO LAB BLOOD BKR ORDERABLES Fi nal Result [facility] [address] [place] [address] * (ABNORMAL) Comprehensive metabolic panel (04/30/2018 9:26 AM EDT) SODIUM 143 133 - 146 mmol/L [facility] POTASSIUM 3.4 3.3 - 5.1 mmol/L [facility] CHLORIDE 103 96 - 108 mmol/L [facility] CO2 27 21 - 35 mmol/L [facility] BUN 7 6 - 19 mg/dL [facility] CREATININE 0.80 0.5 - 1.5 mg/dL [facility] GLUCOSE 113(H) 70 - 99 mg/dL [facility] ALBUMIN 4.8 3.9 - 4.8 g/dL [facility] TOTAL PROTEIN 7.7 6.5 - 8.0 g/dL [facility] CALCIUM 10.0 8.4 - 10.3 mg/dL [facility] ALKALINE PHOSPHATASE 69 39 - 117 U/L [facility] TOTAL BILIRUBIN 0.4 0.0 - 1.2 mg/dL [facility] Comment: Results from certain multiple myeloma patients may show a positive bias in recovery. Not all multiple myeloma patients show the bias and severity of the bias may vary between patients. In very rare cases, gammopathy, in particular type IgM (Waldenstrom's macroglobulinemia), may cause unreliable results. AST 20 0 - 37 U/L [facility] ALT 36 0 - 40 U/L [facility] GLOBULIN 2.9 1 - 4.8 g/dL [facility] EGFR 115 >59 mL/min/1.7 3m2 [facility] Comment:If patient is black, multiply result by 1.159. Estimated glomerular filtration rate calculated using the CKD-EPI equation. ANION GAP 16 10 - 20 mmol/L [facility] Blood 04/30/2018 9:26 AM EDT 04/30/2018 9:33 AM EDT us Leandra SEO LAB BLOOD BKR ORDERABLES Fi nal Result [address] [address] * CBC (04/30/2018 9:26 AM EDT) WBC 5.70 3.40 - 11.20 K/uL [facility] RBC 4.99 4.50 - 5.50 M/uL [facility] HGB 15.5 13.0 - 17.0 g/dL [facility] HCT 44.0 40.0 - 51.0 % [facility] PLT 253 130 - 400 K/uL [facility] MCV 88.2 79.0 - 98.0 fL [facility] MCH 31.1 27.0 - 34.8 pg [facility] MCHC 35.2 31.5 - 36.0 g/dL [facility] RDW 12.1 10.8 - 14.6 % [facility] MPV 9.6 9.4 - 12.4 fl [facility] NRBC 0.00 0.00 /100 WBCs [facility] ABSOLUTE NRBC 0.00 0.00 K/uL [facility] Blood 04/30/2018 9:26 AM EDT 04/30/2018 9:33 AM EDT us Leandra SEO LAB BLOOD BKR ORDERABLES Fi nal Result [address] [address] documented in this encounter Visit Diagnoses Diagnosis Abdominal pain, left lower quadrant- Primary documented in this encounter Additional Health Concerns Infection Onset Date Last Indicated Resolved Time CoV-Risk 08/30/2019 08/31/2019 09/13/2019 1:23 AM EDT Assessment Noted Time PHQ-2 Depression Total Score: 0 01/24/20 18 3:13 PM EST documented as of this encounter Care Teams Forest Examiner Relationship Specialty Start Date End Date Rolo Garcia MD [address] [address] [email or web address] PCP - General Internal Medicine 12/17/16 documented as of this encounter Additional Source Comments The information contained in this document represents components of the legal health record. It is not the complete legal health record.[facility]
--- OUTSIDE RECORDS SUMMARY | 2025-01-20 22:17 | XMS_ITS | Encounter Summary ---
Author Organization [facility] Address [address] [place] [address] Phone Care Team Providers Care Snowboard Instructor Name Role Phone Rolo Garcia MD Primary Care Provider +1- [phone] Reason for Referral * MRI/CAT Scan - Closed Specialty Diagnoses / Procedures Referred By Apolinar suarez Referred To Contact Radiology Diagnoses LLQ abdominal pain Procedures CT Abdomen/Pelvis System, Provider Not In, PhD [address] [address] Referral ID Status Reason Start Date Expiration Date Visits Re quested Visits Authorized [id number] Closed 05/01/2018 05/01/2019 1 1 Encounter Details Date Type Department Care Team (Latest Contact Info) Description 05/01/2018 Transcribe Orders Virtual Department 30 [place] [address] Leandra Tobin PA [address] [place] [address] LLQ abdominal pain (Primary Dx) Social History [...] documented as of this encounter Care Teams Snowboard Instructor Relationship Specialty Start Date End Date Rolo Garcia MD [address] [place] [address] [email or web address] PCP - General Internal Medicine 12/17/16 documented as of this encounter Additional Source Comments The information contained in this document represents components of the legal health record. It is not the complete legal health record.[facility]
--- OUTSIDE RECORDS SUMMARY | 2025-01-20 22:17 | XMS_ITS | Clinical Summary ---
Author Organization [facility] Address [address] [place] [address] Phone Care Team Providers Care Director Safety Name Role Phone Rolo Garcia MD Primary Care Provider +1- [phone] Allergies Active Allergy Reactions Criticality Noted Date Comments Mold Extracts 01/23/2018 Medications amitriptyline (ELAVIL) 25 MG tablet Take 25 mg by mouth nightly at bedtime. Active omega 2-hhy-ukr-fish oil 1,000 mg (120 mg-180 mg) Cap [...] VACCINE ( season) 2024 01/06/2021, 04/30/2020, 04/09/2020 COLOGUARD 01/03/2025 FIT TEST 01/03/2025 FOBT 01/03/2025 SIGMOIDOSCOPY 01/03/2025 VIRTUAL COLONOSCOPY 01/03/2025 LIPID PANEL 12/25/2025 12/25/2020, 04/10, 04/20/2019, Additional history exists COLONOSCOPY 10/12/2031 10/06/2018 COLORECTAL CANCER SCREENING 10/12/2031 Adult Td,Tdap Booster 07/13/2032 07/13/2022, 017 HEPATITIS C SCREENING Completed 04/30/2018 , 04/30/2018, 04/30/2018 HIV ONE-TIME SCREENING (18-65 YEARS) Completed [...] Routine 12/25/2020 9:05 AM EST Mixed hyperlipidemia COLONOSCOPY FOR RESULT ENTRY ONLY Routine 10/06/2018 HEPATITIS C ANTIBODY, QUALITATIVE Routine 04/30/2018 9:26 AM EDT Elevated transaminase level from Last 3 Months or Most Recently Relevant to Health Maintenance Results * (ABNORMAL) Lipid panel (12/25/2020 9:05 AM EST) HDL 40 mg/dL [facility] Comment: Interpretation <40 mg/dL: Low HDL cholesterol (major risk factor for CHD) Greater than or equal to 60 mg/dL: High HDL cholesterol ( negative risk factor for CHD) HDL - cholesterol is affected by a number of factors, e.g. smoking, excerise, hormones, sex and age. CHOLESTEROL 192 0 - 240 mg/dL [facility] TRIGLYCERIDES 200(H) 30 - 160 mg/dL [facility] LDL 112 50 - 129 mg/dL [facility] Comment: LDL levels in terms of risk for coronary heart disease: <100 mg/dL: Optimal 100-129 mg/dL: Near or above optimal 130-159 mg/dL: Borderline high 160-189 mg/dL: High >190 mg/dL: Very High CARDIAC RISK RATIO 4.8 3.4 - 5.0 [facility] Blood 12/25/2020 9:05 AM EST 12/25/2020 9:11 AM EST Rolo Garcia MD LAB BLOOD BKR ORDERABLES F inal Result [address] [id number] * COLONOSCOPY FOR RESULT ENTRY ONLY (10/06/2018) Colonoscopy External Keri Lockhart MD HEALTH MAINTENANCE Final Result * Hepatitis C antibody, qualitative (04/30/2018 9:26 AM EDT) HCV Negative Negative [facility] Comment: This is a screening test and should be confirmed with molecular testing Blood 04/30/2018 9:26 AM EDT 04/30/2018 9:33 AM EDT us Rolo Garcia MD LAB BLOOD BKR ORDERABLES F inal Result [facility] [address] [place] [address] from Last 3 Months or Most Recently [...] CROSS OUT OF STATE PPO Care Teams Director Safety Relationship Specialty Start Date End Date Rolo Garcia MD [address] [address] [email or web address] PCP - General Internal Medicine 12/17/16 Additional Source Comments The information contained in this document represents components of the legal health record. It is not the complete legal health record.[facility]
== END 2025-01-20 14:46 ==
LOC: HO.HMGCLDS 14:45
PROVIDERS: Nurse Practitioner Family; PCP Nurse Practitioner Family; Visit Provider Nurse Practitioner Family
DX: E78.5 Hyperlipidemia, unspecified (principal); E55.9 Vitamin D deficiency, unspecified
CPT/HCPCS: 36415; 80053; 80061; 82306

== ENCOUNTER 2025-02-02 12:23 | Outpatient (AMB) | payer BC, SELFPAY ==
--- OUTSIDE RECORDS SUMMARY | 2025-02-02 12:27 | XMS_ITS | Encounter Summary ---
Author Organization [facility] Address [address] [place] [address] Phone Care Team Providers Care Lamp Decorator Name Role Phone Rolo Garcia MD Primary Care Provider +1- [phone] Reason for Referral * MRI/CAT Scan - Closed Specialty Diagnoses / Procedures Referred By Apolinar suarez Referred To Contact Radiology Diagnoses LLQ abdominal pain Procedures CT Abdomen/Pelvis System, Provider Not In, PhD [address] [address] Referral ID Status Reason Start Date Expiration Date Visits Re quested Visits Authorized [id number] Closed 05/01/2018 05/01/2019 1 1 Encounter Details Date Type Department Care Team (Latest Contact Info) Description 05/01/2018 Transcribe Orders Virtual Department 30 [place] [address] Leandra Tobin PA [address] [place] [address] LLQ abdominal pain (Primary Dx) Social History [...] documented as of this encounter Care Teams Lamp Decorator Relationship Specialty Start Date End Date Rolo Garcia MD [address] [place] [address] [email or web address] PCP - General Internal Medicine 12/17/16 documented as of this encounter Additional Source Comments The information contained in this document represents components of the legal health record. It is not the complete legal health record.[facility]
--- OUTSIDE RECORDS SUMMARY | 2025-02-02 12:27 | XMS_ITS | Encounter Summary ---
Author Organization [facility] Address [address] [place] [address] Phone Care Team Providers Care Psychology Department Chair Name Role Phone Rolo aGrcia MD Primary Care Provider +1- [phone] Reason for Referral * MRI/CAT Scan - Closed Specialty Diagnoses / Procedures Referred By Apolinar suarez Referred To Contact Procedures CT Abdomen/Pelvis Outside (No Interpretation) System, Provider Not In, [place] [address] Referral ID Status Reason Start Date Expiration Date Visits Re quested Visits Authorized [id number] Closed 11/18/2018 11/18/2019 1 1 Encounter Details Date Type Department Care Team (Late st Contact Info) Description 11/18/2018 Ancillary Orders [facility],Outside Imaging [address] [place] [address] System, Provider Not In, PhD [address] [address] Social History Tobacco Use Types Packs/Day Years [...] documented as of this encounter Care Teams Psychology Department Chair Relationship Specialty Start Date End Date Rolo Garcia MD [address] [address] [email or web address] PCP - General Internal Medicine 12/17/16 documented as of this encounter Additional Source Comments The information contained in this document represents components of the legal health record. It is not the complete legal health record.[facility]
--- OUTSIDE RECORDS SUMMARY | 2025-02-02 12:27 | XMS_ITS | Encounter Summary ---
Author Organization [facility] Address [address] [place] [address] Phone Care Team Providers Care Stair Builder Name Role Phone Rolo Garcia MD Primary Care Provider +1- [phone] Encounter Details Date Type Department Care Team (Latest Contact Info) Description 04/30/2018 Transcribe Orders [facility] [address] [address] Leandra Tobin PA 10 [place] [address] Abdominal pain, left lower quadrant (Primary Dx) [...] REACTIVE PROTEIN 1.0 0.0 - 4.0 mg/L [facility] Blood 04/30/2018 9:26 AM EDT 04/30/2018 9:33 AM EDT us Leandra SEO LAB BLOOD BKR ORDERABLES Fi nal Result [facility] [address] [place] [address] * (ABNORMAL) Comprehensive metabolic panel (04/30/2018 9:26 AM EDT) SODIUM 143 133 - 146 mmol/L [facility] POTASSIUM 3.4 3.3 - 5.1 mmol/L [facility] CHLORIDE 103 96 - 108 mmol/L [facility] CO2 27 21 - 35 mmol/L [facility] BUN 7 6 - 19 mg/dL [facility] CREATININE 0.80 0.5 - 1.5 mg/dL [facility] GLUCOSE 113(H) 70 - 99 mg/dL [facility] ALBUMIN 4.8 3.9 - 4.8 g/dL [facility] TOTAL PROTEIN 7.7 6.5 - 8.0 g/dL [facility] CALCIUM 10.0 8.4 - 10.3 mg/dL [facility] ALKALINE PHOSPHATASE 69 39 - 117 U/L [facility] TOTAL BILIRUBIN 0.4 0.0 - 1.2 mg/dL [facility] Comment: Results from certain multiple myeloma patients may show a positive bias in recovery. Not all multiple myeloma patients show the bias and severity of the bias may vary between patients. In very rare cases, gammopathy, in particular type IgM (Waldenstrom's macroglobulinemia), may cause unreliable results. AST 20 0 - 37 U/L [facility] ALT 36 0 - 40 U/L [facility] GLOBULIN 2.9 1 - 4.8 g/dL [facility] EGFR 115 >59 mL/min/1.7 3m2 [facility] Comment:If patient is black, multiply result by 1.159. Estimated glomerular filtration rate calculated using the CKD-EPI equation. ANION GAP 16 10 - 20 mmol/L [facility] Blood 04/30/2018 9:26 AM EDT 04/30/2018 9:33 AM EDT us Leandra SEO LAB BLOOD BKR ORDERABLES Fi nal Result [address] [address] * CBC (04/30/2018 9:26 AM EDT) WBC 5.70 3.40 - 11.20 K/uL [facility] RBC 4.99 4.50 - 5.50 M/uL [facility] HGB 15.5 13.0 - 17.0 g/dL [facility] HCT 44.0 40.0 - 51.0 % [facility] PLT 253 130 - 400 K/uL [facility] MCV 88.2 79.0 - 98.0 fL [facility] MCH 31.1 27.0 - 34.8 pg [facility] MCHC 35.2 31.5 - 36.0 g/dL [facility] RDW 12.1 10.8 - 14.6 % [facility] MPV 9.6 9.4 - 12.4 fl [facility] NRBC 0.00 0.00 /100 WBCs [facility] ABSOLUTE NRBC 0.00 0.00 K/uL [facility] Blood 04/30/2018 9:26 AM EDT 04/30/2018 9:33 AM EDT us Leandra SEO LAB BLOOD BKR ORDERABLES Fi nal Result [address] [address] documented in this encounter Visit Diagnoses Diagnosis Abdominal pain, left lower quadrant- Primary documented in this encounter Additional Health Concerns Infection Onset Date Last Indicated Resolved Time CoV-Risk 08/30/2019 08/31/2019 09/13/2019 1:23 AM EDT Assessment Noted Time PHQ-2 Depression Total Score: 0 01/24/20 18 3:13 PM EST documented as of this encounter Care Teams Stair Builder Relationship Specialty Start Date End Date Rolo Garcia MD [address] [address] [email or web address] PCP - General Internal Medicine 12/17/16 documented as of this encounter Additional Source Comments The information contained in this document represents components of the legal health record. It is not the complete legal health record.[facility]
--- OUTSIDE RECORDS SUMMARY | 2025-02-02 12:27 | XMS_ITS | Clinical Summary ---
Author Organization [facility] Address [address] [place] [address] Phone Care Team Providers Care Launderette Attendant Name Role Phone Rolo Garcia MD Primary Care Provider +1- [phone] Allergies Active Allergy Reactions Criticality Noted Date Comments Mold Extracts 01/23/2018 Medications amitriptyline (ELAVIL) 25 MG tablet Take 25 mg by mouth nightly at bedtime. Active omega 4-jim-lxp-fish oil 1,000 mg (120 mg-180 mg) Cap [...] (12/25/2020 9:05 AM EST) HDL 40 mg/dL [facility] Comment: Interpretation <40 mg/dL: Low HDL cholesterol (major risk factor for CHD) Greater than or equal to 60 mg/dL: High HDL cholesterol ( negative risk factor for CHD) HDL - cholesterol is affected by a number of factors, e.g. smoking, excerise, hormones, sex and age. CHOLESTEROL 192 0 - 240 mg/dL [facility] TRIGLYCERIDES 200(H) 30 - 160 mg/dL [facility] LDL 112 50 - 129 mg/dL [facility] Comment: LDL levels in terms of risk for coronary heart disease: <100 mg/dL: Optimal 100-129 mg/dL: Near or above optimal 130-159 mg/dL: Borderline high 160-189 mg/dL: High >190 mg/dL: Very High CARDIAC RISK RATIO 4.8 3.4 - 5.0 C [facility] Blood 12/25/2020 9:05 AM EST 12/25/2020 9:11 AM EST Rolo Garcia MD LAB BLOOD BKR ORDERABLES F inal Result [address] [id number] * COLONOSCOPY FOR RESULT ENTRY ONLY (10/06/2018) Colonoscopy External Keri Lockhart MD HEALTH MAINTENANCE Final Result * Hepatitis C antibody, qualitative (04/30/2018 9:26 AM EDT) HCV Negative Negative [facility] Comment: This is a screening test and should be confirmed with molecular testing Blood 04/30/2018 9:26 AM EDT 04/30/2018 9:33 AM EDT us Rolo Garcia MD LAB BLOOD BKR ORDERABLES F inal Result [facility] [address] [place] [address] from Last 3 Months or Most Recently [...] CROSS OUT OF STATE PPO Care Teams Launderette Attendant Relationship Specialty Start Date End Date Rolo Garcia MD [address] [address] [email or web address] PCP - General Internal Medicine 12/17/16 Additional Source Comments The information contained in this document represents components of the legal health record. It is not the complete legal health record.[facility]
--- OUTSIDE RECORDS SUMMARY | 2025-02-02 12:27 | XMS_ITS | Encounter Summary ---
Author Organization [facility] Address [address] [place] [address] Phone Care Team Providers Care Vessel Captain Name Role Phone Rolo Garcia MD Primary Care Provider +1- [phone] Encounter Details Date Type Department Care Team ([facility] st Contact Info) Description 12/01/2019 Procedure [facility] [address] [place] [address] Social History Tobacco Use Types Packs/Day Years [...] documented as of this encounter Care Teams Vessel Captain Relationship Specialty Start Date End Date Rolo Garcia MD [address] [place] [phone] [email or web address] PCP - General Internal Medicine 12/17/16 documented as of this encounter Additional Source Comments The information contained in this document represents components of the legal health record. It is not the complete legal health record.[facility]
--- OUTSIDE RECORDS SUMMARY | 2025-02-02 12:27 | XMS_ITS | Clinical Summary ---
Author Organization [facility] Address [address] [place] [address] Care Team Providers Care Hydraulic Pile Hammer Operator Name Role Phone Provider, Unknown Primary Care [...] by mouth. Act ca ergocalciferol (VITAMIN D2,DRISDOL) [address] units Cap Take 50,000 Units by mouth [...] Influenza Vaccine 09/10/2024 COVID-19 Vaccine (1 - 2024-2 6 season) 2024 HPV Vaccines (No Doses Required) Completed Pneumococcal Vaccine: Pediat marquita (0-5 Years) and At-Risk Patients (6 to 49 Years) Aged Out No longer eligible b ased on patient's age to complete this topic Insurance [facility] [employer] Care Teams Hydraulic Pile Hammer Operator Relationship Specialty Start Date End Date Provider, Unknown 1 DO NOT USE THIS RECORD PCP - General 11/08/15
--- OUTSIDE RECORDS SUMMARY | 2025-02-02 12:27 | XMS_ITS | Clinical Summary ---
Author Organization [facility] Address [address] [place] [address] Care Team Providers Care Jersey Knitter Name Role Phone Bessy Lawton Primary Care [...] age to complete this topic Care Teams Jersey Knitter Relationship Specialty Start Date End Date Bessy Lawton PCP - General 09/16/22
--- NOTE | 2025-02-02 12:46 | A.OFFVIS_ITS ---
Vital Signs 02/02/25 13:05 Height 5 ft 11 in Weight 254 lb BMI 35.4 BP 132/90 H Blood Pressure Location Rt brachial Position Sitting Pulse 112 H Pulse Source Pulse Oximeter Pulse Oximetry (%) 100 Oxygen Delivery Method Room Air Intake Visit Reasons: dysphagia Intake Note: New pt for initial eval of dysphagia. Hx of excessive gas + fecal abn. HP and C. Diff negative. CC; C/O epigastric pressure , pt denies pain, as well as GERD + dysphagia. Pt states he has been taking pepcid OTC at bedtime which has been helpful but has not resolved his sx. Reports he had CT scan done 10/2024 and has BA FL scheduled for next week. Pt Skilled Required: No Accompanied by: Self / Same As Patient Allergies mold Allergy (Intermediate, Verified 02/02/25 12:46) triggers asthma HPI HPI dysphagia: Details: 44 years old male with past medical history of GERD, dysphagia, postprandial diarrhea, abdominal bloating, fatty liver, vitamin-D deficiency, migraine headaches, transaminitis, dyslipidemia, and anxiety, asthma, diverticulitis is here today for initial consultation. Patient reports severe epigastric pain and discomfort mostly related to food. Patient reports that it started in the summer more severe. Patient reports that he is under lots of stress. Patient's was diagnosed last year with stage IV colon and liver cancer. She is doing better now. Patient believes that some of his symptoms are related to the stress. Patient started taking Pepcid AC few weeks ago and reports that his symptoms are better, however he still has epigastric pain feeling of tightness in the pit of his stomach. Patient reports that he is moving his bowels well without any issues. Patient is scheduled to go for barium swallow February 15. Patient had negative H pylori. Celiac disease was ruled out. PPIs are not covered by patient's insurance. In 2019 patient had diverticulitis pretty severe and was hospitalized. Patient had colonoscopy then. No symptoms since. Patient reports that he is moving his bowels regularly. Denies any melena, hematochezia, unintentional weight loss or ribbon like stools. Patient denies any family history of [facility] Medical History (Updated 02/02/25 @ 13:47 by Isela Macario, [facility]-) GERD (gastroesophageal reflux disease) Diverticulitis Migraine without aura Peroneal tendinitis, right leg Elevated C-reactive protein (CRP) Peroneal tendonitis of right lower leg Occipital neuralgia Fatty liver Kidney, malrotation Surgical History (Updated 02/02/25 @ 13:07 by CAMILLE Ren) History of esophagogastroduodenoscopy (EGD) H/O colonoscopy No pertinent past surgical history Family History Sister Mental health disorder Father Brain cancer Mother Diabetes Social History Housing: House Alcohol intake: current Alcohol intake frequency: holidays/special occasions only Patient Tobacco Use Status: Never used Tobacco e-Cigarette/Vaping Use: Never Used Second Hand Smoke Exposure: No service: No Current occupational status: employed Current occupation: [employer] Current occupational exposures/hazards: No Cognitive needs: No Hearing needs: No Vision needs: No Review of Systems Const Denies weight gain and Denies weight loss ENT Reports no additional complaints, Reports dysphagia and Denies odynophagia Card Reports no additional complaints Resp Reports no additional complaints GI Reports abdominal pain, Denies belching, Denies melena, Reports bloating, Denies change in bowel habits, Reports dysphagia, Denies excessive flatus, Denies dyspepsia, Reports heartburn, Denies diarrhea, Denies loose stools, Denies nausea, Denies odynophagia and Denies vomiting Reports no additional complaints Musc Reports no additional complaints Neuro Reports no additional complaints Psych Reports no additional complaints Endo Reports no additional complaints Physical Exam Vital Signs: Last Vital Signs Pulse 112 H 02/02/25 13:05 BP 132/90 H 02/02/25 13:05 Pulse Ox 100 02/02/25 13:05 Oxygen Delivery Method Room Air 02/02/25 13:05 BMI result Body Mass Index 35.4 Const General: healthy appearing, no acute distress and well developed Nutritional Appearance: well nourished Orientation/consciousness: patient oriented x3 Resp Effort & Inspection: normal respiratory effort, able to speak in complete sentences, no tracheal deviation and symmetric chest movement Auscultation: clear to auscultation bilaterally Cardio Rate: regular rate GI Inspection: Yes normal to inspection and No distended Palpation (GI): Soft to palpation, not firm, nontender and No hepatosplenomegaly present Auscultation: normal bowel sounds General: Yes no CVA tenderness Back/Spine/Pelvis Back: no CVA tenderness Skin General skin exam: elasticity normal, turgor normal and dry skin Neuro General: patient oriented x3 Psych Appearance: grossly normal Mental Status: mental status grossly normal Assessment & Plan Assessment & Plan (1) Dysphagia: Code(s): R13.10 - Dysphagia, unspecified Category: Medical Qualifiers: Dysphagia type: esophageal phase Qualified Code(s): R13.19 - Other dysphagia (2) GERD (gastroesophageal reflux disease): Code(s): K21.9 - Gastro-esophageal reflux disease without esophagitis Category: Medical Qualifiers: Esophagitis presence: esophagitis presence not specified Qualified Code(s): K21.9 - Gastro-esophageal reflux disease without esophagitis (3) Abdominal bloating: Code(s): R14.0 - Abdominal distension (gaseous) Category: Medical (4) Postprandial epigastric pain: Code(s): R10.13 - Epigastric pain Plan Patient will start taking pantoprazole daily. He had negative H pylori and C diff. Will check lipase. He has barium swallow scheduled for February 15 we will review results. Patient will be sent for upper endoscopy. Message sent to surgical schedulers to call him. Discussed with patient avoiding dietary triggers and late night snacking. Staying upright for minimal 3 hours after meals discussed with patient. Patient will follow-up in our office after the procedure, sooner on as needed basis. He is agreeable to this plan and verbalizes understanding of instructions. He was given the opportunity to ask questions and all questions answered. Thank you for allowing me to participate in his care Orders: Orders Lipase 02/02/25 R10.9 - Unspecified abdominal pain Referrals GI Procedure Notification R13.10 - Dysphagia, unspecified, K21.9 - Gastro-es ophageal reflux disease without esophagitis Medications: New pantoprazole take one tablet half an hour before breakfast 40 mg PO DAILY 90 tabs 2RF K21.9 - Gastro-esophageal reflux disease without esophagitis Coding Level of Care Code New Pt Level 4 (47619) Diagnoses Esophageal dysphagia R13.19 Dysphagia type: esophageal phase Gastroesophageal reflux disease, unspecified whether esophagitis present K21.9 Esophagitis presence: esophagitis presence not specified Abdominal bloating R14.0 Postprandial epigastric pain R10.13 Time Spent (min) 50 Comment 35 minutes spent with patient and additional 15 minutes spent reviewing his records
[2025-02-02 13:05] VITALS: BP 132/90; PULSE 112; O2SAT 100; BMI 35.4
== END 2025-02-02 13:28 | disposition home or self-care (01) ==
LOC: HO.HGI 12:24
PROVIDERS: PCP Nurse Practitioner Family; Visit Provider Nurse Practitioner Family
DX: R13.19 Other dysphagia (principal); K21.9 Gastro-esophageal reflux disease without esophagitis; R14.0 Abdominal distension (gaseous); R10.13 Epigastric pain
CPT/HCPCS: 99204